=== PATIENT | male | born 1935 | race Caucasian/White ===

== ENCOUNTER 2019-06-25 12:36 | Emergency (ER) | payer OTHER ==
--- OUTSIDE RECORDS SUMMARY | 2019-06-25 12:39 | XMS REPORT | Continuity of Care Document ---
:1935 Author Organization [employer] Care Team Providers Name Role Phone [employer] Unavailable Unavailable Problems Problem Status Onset Classification Date Comments Source Date Reported CVA (Confirmed) Active Problem 05/30/2019 [facility] Dementia Active Problem 05/30/2019 [facility] Diabetes Active Problem 05/30/2019 [facility] Hyperlipidemia Active Problem 05/30/2019 [facility] Hypertension Active Problem 05/30/2019 [facility] Memory loss Active Problem 05/30/2019 [facility] Simple obesity Active Problem 05/30/2019 [facility] Cerebrovascular Active Problem 06/13/2019 [facility] accident (disorder) [facility] Dementia (disorder) Active Problem 06/13/2019 [facility] Diabetes mellitus Active Problem 06/13/2019 [facility] (disorder) [facility] Hyperlipidemia Active Problem 06/13/2019 [facility] (disorder) [facility] Hypertensive Active Problem 06/13/2019 [facility] disorder, systemic Neuro arterial (disorder) Memory impairment Active Problem 06/13/2019 [facility] (finding) [facility] Simple obesity Active Problem 06/13/2019 [facility] (disorder) [facility] Medications Medication Details Route Status Patient Ordering Order Source Instructions Provider Date Memantine 10 mg=1 Active [facility] hydrochloride 10 MG tab, PO, 019 [facility] Oral Tablet [Namenda] BID, # 180 tab, 2 Refill(s) Memantine 5 mg=1 Active [facility] hydrochloride 5 MG tab, PO, 019 [facility] Oral Tablet [Namenda] BID, # 30 tab, 1 Refill(s) , Pharmacy: [id number] clopidogrel 75 MG 75 mg=1 Active [facility] Tablet [Plavix] tab, PO, 019 [facility] Daily, # 90 tab, 3 Refill(s) , Pharmacy: [id number] Donepezil 5 mg=1 Active [facility] hydrochloride 5 MG tab, PO, 019 [facility] Oral Tablet [Aricept] Bedtime, # 30 tab, 3 Refill(s) , Pharmacy: [id number] clopidogrel 75 MG 75 mg=1 Active [facility] Tablet [Plavix] tab, PO, 019 [facility] Daily, # 30 tab, 3 Refill(s) , Pharmacy: [id number] carvedilol 12.5 mg, Active [facility] PO, BID, 019 [facility] 0 Refill(s) Hydrochlorothiazide 25 mg, Active [facility] PO, 019 [facility] Daily, 0 Refill(s) Ramipril 10 mg, Active [facility] PO, 019 [facility] Daily, 0 Refill(s) Fenofibrate 160 mg, Active [facility] PO, 019 [facility] Daily, 0 Refill(s) Janumet See Active [facility] Instructi 019 [facility] ons, 50-1000mg daily, 0 Refill(s) Aspirin 81 mg, Active [facility] PO, 019 [facility] Daily, 0 Refill(s) Potassium Chloride 20 mEq, Active [facility] PO, 019 [facility] Daily, 0 Refill(s) Glipizide 10 mg, Active [facility] PO, 019 [facility] Daily, 0 Refill(s) Amlodipine 5 mg, PO, Active [facility] Daily, 0 019 [facility] Refill(s) Allergies, Adverse Reactions, Alerts No Known Medication Allergies Immunizations No Data Provided for This Section Results No Data Provided for This Section Pathology Reports No Data Provided for This Section Diagnostic Reports No Data Provided for This Section Consultation Notes No Data Provided for This Section Discharge Summaries No Data Provided for This Section History and Physicals No Data Provided for This Section Vital Signs Vital Sign Value Date Comments Source Systolic (mm Hg) 126 06/10/2019 [facility] Diastolic (mm Hg) 70 06/10/2019 [facility] Heart Rate 83 06/10/2019 [facility] Respitory Rate 16 06/10/2019 [facility] Height 182.88 cm 06/10/2019 [facility] Weight 87.727 06/10/2019 [facility] BMI Calculated 26.23 06/10/2019 [facility] Respitory Rate 16 05/27/2019 [facility] Heart Rate 87 05/27/2019 [facility] Height 172.72 cm 05/27/2019 [facility] Weight 89.091 05/27/2019 [facility] BMI Calculated 29.86 05/27/2019 [facility] Systolic (mm Hg) 144 05/27/2019 [facility] Diastolic (mm Hg) 70 05/27/2019 [facility] Height 182.88 cm 04/18/2019 [facility] Weight 92.273 04/18/2019 [facility] BMI Calculated 27.59 04/18/2019 [facility] Respitory Rate 16 04/18/2019 [facility] Systolic (mm Hg) 125 04/18/2019 [facility] Diastolic (mm Hg) 69 04/18/2019 [facility] Heart Rate 80 04/18/2019 [facility] Weight 94.545 03/18/2019 [facility] BMI Calculated 30.78 03/18/2019 [facility] Systolic (mm Hg) 141 03/18/2019 [facility] Diastolic (mm Hg) 64 03/18/2019 [facility] Respitory Rate 16 03/18/2019 [facility] Heart Rate 76 03/18/2019 [facility] Height 175.26 cm 03/18/2019 [facility] Encounters Location Location Encounter Encounter Reason Attending ADM DC Status Source Details Type Number For Provider Date Date Visit Outpatient [id number] Artie 03/18 [facility] [id number] Artie 03/18 03/19 [facility] [place] [facility]patient [id number] Artie 04/18 [facility] Outpatient [id number] Artie 04/18 04/19 [facility] [place] Outpatient [id number] Artie 05/27 [facility] Outpatient [id number] Artie 05/27 05/28 [facility] [place] Outpatient [id number] Artie 06/10 [facility] Outpatient [id number] Artie 06/10 06/11 [facility] [place] Outpatient [id number] Artie 08/27 [facility] Procedures Procedure Code Date Perfomer Comments Source Knee replacement [id number] [facility] Assessment and Plan No Data Provided for This Section Plan of Care No Data Provided for This Section Social History Social History Date Source Social History TypeResponse 06/10/2019 [facility] Employment/School Status: Retired. Work/School description: Lives in [place], [place]. Other: not driving. No Will no POA.1, 2 Smoking Status Never smoker; Exposure to Tobacco Smoke Unable to obtain; Cigarette Smoking Last 365 Days Unable to obtain; Reg Smoking Cessation Counseling No entered on: 06/10/19 1POA-Daughter- Candace Araiza2May release medical information to Daughter- Candace Araiza and Daughter Cecelia Marks Family History No Data Provided for This Section Advance Directives No Data Provided for This Section Functional Status No Data Provided for This Section
--- OUTSIDE RECORDS SUMMARY | 2019-06-25 12:39 | XMS REPORT ---
:1935 [facility] Address [address] [place] [address] Dr. Serna [address] [place] [id number] Care Team Providers Name Role Phone Unavailable Unavailable Unavailable Problems This patient has no known problems. Allergies, Adverse Reactions, Alerts This patient has no known allergies or adverse reactions. Medications This patient has no known medications.
--- OUTSIDE RECORDS SUMMARY | 2019-06-25 12:39 | XMS REPORT | Summary of Care ---
:1935 Author Organization [facility] Address [address] [place] [address]- Encounter HQ Radha(FIN) [id number] Date(s): 06/10/19 - 06/10/19 [facility] [address] [place] [address]- [phone] Discharge Disposition: Home or Self Care Attending Physician: Artie Arroyo MD Referring Physician: Artie Arroyo MD Vital Signs Most recent to oldest [Reference Range]: 1 Height 182.88 cm (06/10/19 3:57 PM) Blood Pressure [90-140/60-90 mmHg] 126/70 mmHg (06/10/19 3:57 PM) Respiratory Rate [14-20 BRMIN] 16 BRMIN (06/10/19 3:57 PM) Peripheral Pulse Rate [60-100 bpm] 83 bpm (06/10/19 3:57 PM) Weight 87.727 kg (06/10/19 3:57 PM) Body Mass Index 26.23 m2 (06/10/19 3:57 PM) Problem List Condition Effective Dates Status Health Status Informant CVA (cerebrovascular Active accident)(Confirmed) Dementia(Confirmed) Active Diabetes(Confirmed) Active Hyperlipidemia(Confirmed) Active Hypertension(Confirmed) Active Memory loss(Confirmed) Active Simple obesity(Confirmed) Active Allergies, Adverse Reactions, Alerts No Known Allergies Medications Namenda 10 mg oral tablet 10 mg=1 tab, PO, BID, # 180 tab, 2 Refill(s) Start Date: 06/10/19 Stop Date: 03/06/20 Status: Ordered Results No data available for this section Immunizations No data available for this section Procedures Procedure Date Related Diagnosis Body Site Status Knee replacement Completed Social History Social History Type Response Employment/School Status: Retired. Work/School description: Lives in [place], [place]. Other: not driving. No Will no POA.1, 2 Smoking Status Never smoker; Exposure to Tobacco Smoke Unable to obtain; Cigarette Smoking Last 365 Days Unable to obtain; Reg Smoking Cessation Counseling No entered on: 06/10/19 1POA-Daughter- Candace Araiza2May release medical information to Daughter-Candace Araiza & Daughter Cecelia Marks Assessment and Plan No data available for this section
--- NOTE | 2019-06-25 13:21 | RAD REPORT ---
EXAM DESCRIPTION: CT - [id number] - 06/25/2019 1:03 pm CLINICAL HISTORY: Fall, head and neck injury, anticoagulation therapy COMPARISON: None. TECHNIQUE: Axial 5 mm thick images of the head were obtained. Axial 2 mm thick images of the cervic al spine were obtained with sagittal and coronal reconstruction images generated and reviewed. All CT scans are performed using dose optimization technique as appropriate and may include automated exposure control or mA/KV adjustment according to patient size. FINDINGS: No intracranial hemorrhage, mass, edema or acute intracranial finding. No suspicion for acute infarct ion. No extra-axial fluid collections. Mastoid air cells and paranasal sinuses are clear. No globe or orbit abnormality seen. Patient has moderate severity atrophy and chronic ischemic change. Ventricle s are in proportion to any volume loss. Arterial tree calcifications are present. Cervical body height and alignment are normal. No disk space narrowing. No cervical fracture. No lyti c, sclerotic or expansile bony destructive process. Patient has very pronounced and thickened opacifi cation along the anterior aspect of the cervical spine fusing C2 -C7 along the anterior margin. There is prominent spurring at the C7-T1 level but no complete bony bridging. Prominent facet joint degene rative changes are present. 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 Mild bilateral foraminal encroachment at C4-5. There is signific ant bilateral foraminal encroachment at C5-6. Posterior longitudinal ligament mineralization at C5 an d C6 causes borderline central spinal stenosis. No paraspinal mass or hematoma. IMPRESSION: Prominent atrophy and chronic ischemic changes are present but no hemorrhage or acute in tracranial finding. Advanced cervical spine degenerative change present as detailed. No fracture or acute finding seen.
--- NOTE | 2019-06-25 13:29 | RAD REPORT ---
EXAM DESCRIPTION: Shoulder Right 2 View - 06/25/2019 1:14 pm CLINICAL HISTORY: Fall, right shoulder pain COMPARISON: None. TECHNIQUE: Internal and external rotation views of the right shoulder were obtained. FINDINGS: There is no fracture or dislocation. AC joint degenerative changes are present with a sma ll inferiorly directed clavicle spur. Degenerative changes seen along the undersurface of the acromio n as well. AC joint capsular hypertrophy is present superiorly. Acromial humeral joint space is elizabeth l distance. No abnormal calcifications. Degenerative changes present along the articular margins of t he humeral head. IMPRESSION: Right shoulder degenerative change present as detailed. No fracture or other acute findi ng.
--- NOTE | 2019-06-25 14:47 | ER ---
Nurse's Notes [facility] Name: Lui Kelly Age: 84 yrs Sex: Male : 1935 Arrival Date: 06/25/2019 Time: 12:47 Bed 14 Private MD: Diagnosis: Superficial injury of head;Contusion of right shoulder Presentation: 06/25 12:40 Presenting complaint: EMS states: patient had a fall in the bathroom, patient doesn't mg2 have a total recall of the incident. complained of pain in bith shoulders, neck and head. denies LOC. BGL- 87 mg/dl. patient is a resident of [facility]. 12:40 Transition of care: patient was received from another setting of care (long-term care [facility]), [facility]. Onset of symptoms was June 25, 2019 at 12:00. Risk Assessment: Do you want to hurt yourself or someone else? Patient reports no desire to harm self or others. Initial Sepsis Screen: Does the patient meet any 2 criteria? No. Patient's initial sepsis screen is negative. Does the patient have a suspected source of infection? No. Patient's initial sepsis screen is negative. Care prior to arrival: c-collar. 12:40 Method Of Arrival: EMS: [facility] mg2 12:40 Acuity: SOBEIDA 3 mg2 Historical: - Allergies: 13:00 No Known Allergies; mg2 - PMHx: 13:00 Hypertension; Diabetes - NIDDM; High Cholesterol; Dementia; CVA; psoriasis; Depression; mg2 Arthritis; - PSHx: 13:00 Knee surgery; mg2 - Immunization history:: Flu vaccine is up to date. - Social history:: Smoking status: Patient/guardian denies using tobacco, Patient/guardian denies using alcohol, street drugs, IV drugs. - Ebola Screening: : No symptoms or risks identified at this time. Screenin:35 Abuse screen: Denies threats or abuse. Denies injuries from another. Nutritional mg2 screening: No deficits noted. Tuberculosis screening: No symptoms or risk factors identified. Fall Risk Fall in past 12 months (25 points). Assessment: 13:01 Reassessment: patient sent to ct scan. mg2 13:36 General: Appears in no apparent distress. comfortable, Behavior is calm, cooperative. mg2 Pain: Complains of pain in neck, head and both shoulders Pain does not radiate. Pain currently is 7 out of 10 on a pain scale. Quality of pain is described as aching, Pain began suddenly, 2 hours ago. Neuro: Level of Consciousness is awake, alert, obeys commands, Oriented to person, place, situation. Cardiovascular: Capillary refill < 3 seconds Patient's skin is warm and dry. Respiratory: Airway is patent Respiratory effort is even, unlabored, Respiratory pattern is regular, symmetrical. GI: No signs and/or symptoms were reported involving the gastrointestinal system. : No signs and/or symptoms were reported regarding the genitourinary system. EENT: Derm: Skin abrasion in the right knee. Musculoskeletal: Circulation, motion, and sensation intact. Capillary refill < 3 seconds. 15:03 Reassessment: c collar removed as ordered by the provider., patient discharged mg2 accompanied by the family to the senior living. Vital Signs: 12:57 BP 162 / 94; Pulse 84; Resp 18; Temp 98.7; Pulse Ox 99% on R/A; Weight 90.72 kg; Height mg2 6 ft. 0 in. (182.88 cm); Pain 8/10; 13:56 BP 164 / 77; Pulse 85; Resp 18; Pulse Ox 99% on R/A; mg2 15:04 BP 160 / 70; Pulse 85; Resp 18; Temp 98; Pulse Ox 100% on R/A; mg2 12:57 Body Mass Index 27.12 (90.72 kg, 182.88 cm) mg2 Binh Coma Score: 12:49 Eye Response: spontaneous(4). Verbal Response: oriented(5). Motor Response: obeys pm1 commands(6). Total: 15. ED Course: 12:47 Patient arrived in ED. em1 12:47 Lex Bullock, SLICK is Primary Nurse. mg2 12:47 Brian Frey NP is PHCP. pm1 12:47 Reynold Rico MD is Attending Physician. pm1 12:57 Triage completed. mg2 13:00 Arm band placed on. mg2 13:11 No provider procedures requiring assistance completed. Patient did not have IV access mg2 during this emergency room visit. 13:32 Shoulder Right (2 View) XRAY In Process Unspecified. EDMS 13:43 Patient has correct armband on for positive identification. mg2 Administered Medications: 14:54 Drug: traMADol 50 mg Route: PO; mg2 14:54 Follow up: Response: No adverse reaction; Medication administered at discharge. mg2 Point of Care Testing: Blood Glucose: 13:56 Blood Glucose: 99 mg/dL; mg2 Ranges: Outcome: 14:47 Discharge ordered by . pm1 15:05 Discharged to senior living. discharge instructions given to the patient and to the mg2 family. 15:05 Condition: stable 15:05 Discharge instructions given to patient, family, Instructed on discharge instructions, follow up and referral plans. medication usage, Demonstrated understanding of instructions, follow-up care, medications, Prescriptions given X 1. 15:05 Patient left the ED. mg2 Signatures: Dispatcher [employer] EDMS Dwaine Hogue em1 Brian Frey NP ROOTER OPERATOR pm1 Lex Bullock RN RN mg2 Corrections: (The following items were deleted from the chart) 13:01 12:40 Care prior to arrival: None. mg2 mg2
--- NOTE | 2019-06-25 14:47 | EDPHYS ---
Physician Documentation [facility] Name: Lui Kelly Age: 84 yrs Sex: Male : 1935 Arrival Date: 06/25/2019 Time: 12:47 Bed 14 Private MD: ED Physician Reynold Rico HPI: 06/25 12:49 This 84 yrs old Male presents to ER via EMS with complaints of Head injury pm1 and fall. 12:49 The patient or guardian reports injury. The complaints affect the forehead. Context of pm1 injury: The problem was sustained at a [place] [facility] or assisted living facility, resulted from a fall, while walking. Onset: The symptoms/episode began/occurred just prior to arrival. Associated signs and symptoms: Pertinent positives: right shoulder pain and neck pain, Pertinent negatives: dazed, headache, injury, nausea, shortness of breath, vomiting. history of multiple falls in the [place] [facility], at least once per week. Patient was walking in the [place] [facility] to the bathroom without his walker. Patient found himself on the floor and presented to the ER with contusion to right side of forehead and right shoulder pain. Historical: - Allergies: 13:00 No Known Allergies; mg2 - PMHx: 13:00 Hypertension; Diabetes - NIDDM; High Cholesterol; Dementia; CVA; psoriasis; Depression; mg2 Arthritis; - PSHx: 13:00 Knee surgery; mg2 - Immunization history:: Flu vaccine is up to date. - Social history:: Smoking status: Patient/guardian denies using tobacco, Patient/guardian denies using alcohol, street drugs, IV drugs. - Ebola Screening: : No symptoms or risks identified at this time. ROS: 12:49 Constitutional: Negative for fever, chills, and weight loss, Eyes: Negative for injury, pm1 pain, redness, and discharge, ENT: Negative for injury, pain, and discharge, Cardiovascular: Negative for chest pain, palpitations, and edema, Respiratory: Negative for shortness of breath, cough, wheezing, and pleuritic chest pain, Abdomen/GI: Negative for abdominal pain, nausea, vomiting, diarrhea, and constipation, Back: Negative for injury and pain, MS/Extremity: Negative for injury and deformity, Skin: Negative for injury, rash, and discoloration. 12:49 Neck: Positive for pain at rest, Negative for bony tenderness. 12:49 Neuro: Positive for headache, Negative for numbness, tingling. Exam: 12:49 Constitutional: This is a well developed, well nourished patient who is awake, alert, pm1 and in no acute distress. 12:49 Eyes: Pupils equal round and reactive to light, extra-ocular motions intact. Lids and lashes normal. Conjunctiva and sclera are non-icteric and not injected. Cornea within normal limits. Periorbital areas with no swelling, redness, or edema. ENT: Nares patent. No nasal discharge, no septal abnormalities noted. Tympanic membranes are normal and external auditory canals are clear. Oropharynx with no redness, swelling, or masses, exudates, or evidence of obstruction, uvula midline. Mucous membranes moist. Neck: Trachea midline, no thyromegaly or masses palpated, and no cervical lymphadenopathy. Supple, full range of motion without nuchal rigidity, or vertebral point tenderness. No Meningismus. Chest/axilla: Normal chest wall appearance and motion. Nontender with no deformity. No lesions are appreciated. Cardiovascular: Regular rate and rhythm with a normal S1 and S2. No gallops, murmurs, or rubs. Normal PMI, no JVD. No pulse deficits. Respiratory: Lungs have equal breath sounds bilaterally, clear to auscultation and percussion. No rales, rhonchi or wheezes noted. No increased work of breathing, no retractions or nasal flaring. Abdomen/GI: Soft, non-tender, with normal bowel sounds. No distension or tympany. No guarding or rebound. No evidence of tenderness throughout. Back: No spinal tenderness. No costovertebral tenderness. Full range of motion. Skin: Warm, dry with normal turgor. Normal color with no rashes, no lesions, and no evidence of cellulitis. MS/ Extremity: Pulses equal, no cyanosis. Neurovascular intact. Full, normal range of motion. 12:49 Head/face: Noted is no obvious of injury or deformity except contusion, that is superficial, of the forehead. 12:49 Neuro: Orientation: to person, place, situation, Motor: moves all fours. Vital Signs: 12:57 BP 162 / 94; Pulse 84; Resp 18; Temp 98.7; Pulse Ox 99% on R/A; Weight 90.72 kg; Height mg2 6 ft. 0 in. (182.88 cm); Pain 8/10; 13:56 BP 164 / 77; Pulse 85; Resp 18; Pulse Ox 99% on R/A; mg2 15:04 BP 160 / 70; Pulse 85; Resp 18; Temp 98; Pulse Ox 100% on R/A; mg2 12:57 Body Mass Index 27.12 (90.72 kg, 182.88 cm) mg2 Binh Coma Score: 12:49 Eye Response: spontaneous(4). Verbal Response: oriented(5). Motor Response: obeys pm1 commands(6). Total: 15. MDM: 12:47 Patient medically screened. pm1 14:44 Data reviewed: vital signs. Data interpreted: Pulse oximetry: on room air is 99 %. pm1 Interpretation: normal. Counseling: I had a detailed discussion with the patient and/or guardian regarding: the historical points, exam findings, and any diagnostic results supporting the discharge/admit diagnosis, radiology results, the need for outpatient follow up, to return to the emergency department if symptoms worsen or persist or if there are any questions or concerns that arise at home. 06/25 12:47 Order name: Shoulder Right (2 View) XRAY pm1 06/25 12:47 Order name: CT Head C Spine pm1 Administered Medications: 14:54 Drug: traMADol 50 mg Route: PO; mg2 14:54 Follow up: Response: No adverse reaction; Medication administered at discharge. mg2 Point of Care Testing: Blood Glucose: 13:56 Blood Glucose: 99 mg/dL; mg2 Ranges: Critical Glucose Levels:Adult <50 mg/dl or >400 mg/dl <40 mg/dl or >180 mg/dl Disposition: 15:48 Co-signature as Attending Physician, Reynold Rico MD. rn Disposition: 06/25/19 14:47 Discharged to Home. Impression: Superficial injury of head, Contusion of right shoulder. - Condition is Stable. - Discharge Instructions: Head Injury, Adult, Shoulder Pain. - Prescriptions for Tramadol 50 mg Oral Tablet - take 1 tablet by ORAL route every 8 hours as needed; 12 tablet. - Medication Reconciliation Form, Thank You Letter, Antibiotic Education, Prescription Opioid Use form. - Follow up: Emergency Department; When: As needed; Reason: Worsening of condition. Follow up: Private Physician; When: 2 - 3 days; Reason: Recheck today's complaints, Continuance of care, Re-evaluation by your physician. - Problem is new. - Symptoms have improved. Signatures: Dispatcher [employer] EDMS Reynold Rico MD MD rn rBian Frey, GEOLOGICAL TECHNICAL OFFICER GEOLOGICAL TECHNICAL OFFICER pm1 Lex Bullock, RN RN mg2 Corrections: (The following items were deleted from the chart) 15:05 14:47 06/25/2019 14:47 Discharged to Home. Impression: Superficial injury of head; mg2 Contusion of right shoulder. Condition is Stable. Forms are Medication Reconciliation Form, Thank You Letter, Antibiotic Education, Prescription Opioid Use. Follow up: Emergency Department; When: As needed; Reason: Worsening of condition. Follow up: Private Physician; When: 2 - 3 days; Reason: Recheck today's complaints, Continuance of care, Re-evaluation by your physician. Problem is new. Symptoms have improved. pm1
[2019-06-25] MEDS ORDERED: TRAMADOL HCL 50 MG TAB ONE (14:53)
== END 2019-06-25 15:05 | disposition home or self-care (01) ==
LOC: ER 12:36
DX: S40.011A Contusion of right shoulder, initial encounter (principal); S00.90XA Unspecified superficial injury of unspecified part of head, initial encounter; W19.XXXA Unspecified fall, initial encounter; Y93.01 Activity, walking, marching and hiking; Y92.129 Unspecified place in nursing home as the place of occurrence of the external cause; I10 Essential (primary) hypertension
CPT/HCPCS: 70450; 72125; 82962; 99284

== ENCOUNTER 2019-09-05 18:47 | Emergency (ER) | payer OTHER ==
--- OUTSIDE RECORDS SUMMARY | 2019-09-05 18:50 | XMS REPORT ---
:1935 [facility] [address] [place] [address] Dr. Serna [address] [place] [id number] Care Team Providers Name Role Phone Unavailable Unavailable Unavailable Problems This patient has no known problems. Allergies, Adverse Reactions, Alerts This patient has no known allergies or adverse reactions. Medications This patient has no known medications.
--- NOTE | 2019-09-05 20:26 | RAD REPORT ---
EXAM DESCRIPTION: RAD - Abdomen 1 View (KUB) - 09/05/2019 8:17 pm CLINICAL HISTORY: Abdomen pain. FINDINGS: The bowel gas pattern is unremarkable. A moderate amount of stool is present throughout the colon No significant calcifications displayed
--- NOTE | 2019-09-05 20:34 | ER ---
Nurse's Notes [facility] Name: uLi Kelly Age: 84 yrs Sex: Male : 1935 Arrival Date: 09/05/2019 Time: 18:49 Bed 30 Private MD: Diagnosis: Constipation, unspecified Presentation: 09/05 18:54 Presenting complaint: Patient states: i havent pooped in 4 days, i live at [facility], i tw2 have been prescribed 4 different stool softeners, and i havent gone yet. Transition of care: patient was not received from another setting of care. Onset of symptoms was September 05, 2019. Risk Assessment: Do you want to hurt yourself or someone else? Patient reports no desire to harm self or others. Initial Sepsis Screen: Does the patient meet any 2 criteria? No. Patient's initial sepsis screen is negative. Does the patient have a suspected source of infection? No. Patient's initial sepsis screen is negative. Care prior to arrival: None. 18:54 Method Of Arrival: Wheelchair tw2 18:54 Acuity: SOBEIDA 3 tw2 Triage Assessment: 18:55 General: Appears in no apparent distress. Behavior is calm, cooperative, appropriate tw2 for age. Pain: Complains of pain in abdomen. GI: Reports constipation. Historical: - Allergies: 19:00 No Known Allergies; tw2 - Home Meds: 19:00 amlodipine 5 mg tab 1 tab once daily [Active]; carvedilol 12.5 mg oral tab 1 tab 2 tw2 times per day [Active]; cefpodoxime 200 mg oral tab 1 tab every 12 hours [Active]; clopidogrel 75 mg oral tab 1 tab once daily [Active]; fenofibrate 160 mg oral tab 1 tab once daily [Active]; glipizide 10 mg Oral tab 1 tab once daily [Active]; Janumet 50-1,000 mg oral tab 1 tab 2 times per day [Active]; memantine 5 mg oral tab 2 tabs 2 times per day [Active]; Natural Fiber Laxative (sugar) 3.4 gram/12 gram oral powd [Active]; potassium chloride 20 mEq Oral TbER 1 tab 2 times per day [Active]; ramipril 10 mg Oral cap 1 cap once daily [Active]; senna 8.6 mg oral tab 2 tabs once daily [Active]; tamsulosin 0.4 mg oral cp24 1 cap once daily [Active]; Miralax 17 gram Oral pwpk 1 packet once daily [Active]; nystatin 100,000 unit/mL Oral susp 4 mL 4 times per day [Active]; tramadol 50 mg Oral tab 1 tab every 6 hours [Active]; triamcinolone acetonide 0.025 % Topical lotn 2 times per day [Active]; - PMHx: 19:00 Arthritis; CVA; Dementia; Depression; Diabetes - NIDDM; High Cholesterol; Hypertension; tw2 psoriasis; - PSHx: 19:00 Knee surgery; tw2 - Immunization history:: Adult Immunizations. - Social history:: Smoking status: . - Ebola Screening: : Patient denies travel to an Ebola-affected area in the 21 days before illness onset. Screenin:58 Abuse screen: Denies threats or abuse. Denies injuries from another. Nutritional rv screening: No deficits noted. Tuberculosis screening: No symptoms or risk factors identified. Fall Risk No fall in past 12 months (0 pts). Secondary diagnosis (15 points) Alzheimer's, Ambulatory Aid- None/Bed Rest/Nurse Assist (0 pts). Gait- Normal/Bed Rest/Wheelchair (0 pts) Mental Status- Oriented to own ability (0 pts). Total Gonzalez Fall Scale indicates No Risk (0-24 pts). Assessment: 19:57 General: Appears in no apparent distress. comfortable, Behavior is calm, cooperative. rv Pain: Complains of pain in abdomen. Neuro: Level of Consciousness is awake, alert, obeys commands, Oriented to person, place, time, situation. Cardiovascular: Patient's skin is warm and dry. Respiratory: Airway is patent. GI: Bowel sounds present X 4 quads. Abd is soft and non tender X 4 quads. GI: Reports lower abdominal pain. : No signs and/or symptoms were reported regarding the genitourinary system. EENT: No signs and/or symptoms were reported regarding the EENT system. Derm: Skin is intact. Musculoskeletal: No signs and/or symptoms reported regarding the musculoskeletal system. Vital Signs: 19:00 BP 121 / 66; Pulse 87; Resp 17; Temp 98.6(O); Pulse Ox 96% on R/A; Weight 90.72 kg (R); tw2 Height 5 ft. (152.40 cm); Pain 5/10; 20:57 BP 166 / 81; Pulse 84; Resp 17; Pulse Ox 97% on R/A; rv 19:00 Body Mass Index 39.06 (90.72 kg, 152.40 cm) tw2 ED Course: 18:49 Patient arrived in ED. as 18:55 Triage completed. tw2 18:56 Arm band placed on. tw2 19:20 Ketan Torrez MD is Attending Physician. tw4 19:27 Walker Denton, RN is Primary Nurse. rv 19:58 Patient has correct armband on for positive identification. Bed in low position. Call rv light in reach. Side rails up X 1. Pulse ox on. NIBP on. 20:13 Abdomen 1 View (KUB) XRAY In Process Unspecified. EDMS 20:56 No provider procedures requiring assistance completed. Patient did not have IV access rv during this emergency room visit. Administered Medications: 20:40 Drug: Lactulose 30 grams Volume: 45 ml; Route: PO; rv 20:56 Follow up: Response: No adverse reaction rv Outcome: 20:33 Discharge ordered by . tw4 20:56 Discharged to home via wheelchair, with family. rv 20:56 Condition: good 20:56 Discharge instructions given to family, Instructed on discharge instructions, follow up and referral plans. medication usage, Demonstrated understanding of instructions, follow-up care, medications, Prescriptions given X 3. 20:57 Patient left the ED. rv Signatures: Dispatcher [employer] EDMS Kamala Hogue Tara RN RN tw2 Ketan Torrez MD MD tw4 Walker Denton, RN RN rv Corrections: (The following items were deleted from the chart) 19:59 19:58 Fall Risk None identified. rv rv
--- NOTE | 2019-09-05 20:35 | EDPHYS ---
Physician Documentation [facility] Name: Lui Kelly Age: 84 yrs Sex: Male : 1935 Arrival Date: 09/05/2019 Time: 18:49 Bed 30 Private MD: ED Physician Ketan Torrez HPI: 09/06 06:35 This 84 yrs old Male presents to ER via Wheelchair with complaints of tw4 Constipation, Abdominal Pain. 06:35 The patient presents to the emergency department with pain in the rectal area, that is tw4 mild. Onset: The symptoms/episode began/occurred 4 day(s) ago. Modifying factors: The symptoms are alleviated by nothing. Associate signs and symptoms: The patient has no apparent associated signs or symptoms. The patient has experienced similar episodes in the past, a few times. Pt has been taking ;laxatives given by the senior care with no relief . Historical: - Allergies: 09/05 19:00 No Known Allergies; tw2 - Home Meds: 19:00 amlodipine 5 mg tab 1 tab once daily [Active]; carvedilol 12.5 mg oral tab 1 tab 2 tw2 times per day [Active]; cefpodoxime 200 mg oral tab 1 tab every 12 hours [Active]; clopidogrel 75 mg oral tab 1 tab once daily [Active]; fenofibrate 160 mg oral tab 1 tab once daily [Active]; glipizide 10 mg Oral tab 1 tab once daily [Active]; Janumet 50-1,000 mg oral tab 1 tab 2 times per day [Active]; memantine 5 mg oral tab 2 tabs 2 times per day [Active]; Natural Fiber Laxative (sugar) 3.4 gram/12 gram oral powd [Active]; potassium chloride 20 mEq Oral TbER 1 tab 2 times per day [Active]; ramipril 10 mg Oral cap 1 cap once daily [Active]; senna 8.6 mg oral tab 2 tabs once daily [Active]; tamsulosin 0.4 mg oral cp24 1 cap once daily [Active]; Miralax 17 gram Oral pwpk 1 packet once daily [Active]; nystatin 100,000 unit/mL Oral susp 4 mL 4 times per day [Active]; tramadol 50 mg Oral tab 1 tab every 6 hours [Active]; triamcinolone acetonide 0.025 % Topical lotn 2 times per day [Active]; - PMHx: 19:00 Arthritis; CVA; Dementia; Depression; Diabetes - NIDDM; High Cholesterol; Hypertension; tw2 psoriasis; - PSHx: 19:00 Knee surgery; tw2 - Immunization history:: Adult Immunizations. - Social history:: Smoking status: . - Ebola Screening: : Patient denies travel to an Ebola-affected area in the 21 days before illness onset. ROS: 09/06 06:35 Constitutional: Negative for fever, chills, and weight loss, Eyes: Negative for injury, tw4 pain, redness, and discharge, Cardiovascular: Negative for chest pain, palpitations, and edema, Respiratory: Negative for shortness of breath, cough, wheezing, and pleuritic chest pain. Abdomen/GI: Positive for rectal pain. 06:35 Abdomen/GI: Positive for constipation. tw4 Exam: 06:35 Constitutional: This is a well developed, well nourished patient who is awake, alert, tw4 and in no acute distress. Head/Face: Normocephalic, atraumatic. Chest/axilla: Normal chest wall appearance and motion. Nontender with no deformity. No lesions are appreciated. Cardiovascular: Regular rate and rhythm with a normal S1 and S2. No gallops, murmurs, or rubs. Normal PMI, no JVD. No pulse deficits. Respiratory: Lungs have equal breath sounds bilaterally, clear to auscultation and percussion. No rales, rhonchi or wheezes noted. No increased work of breathing, no retractions or nasal flaring. 06:35 Back: No spinal tenderness. No costovertebral tenderness. Full range of motion. Skin: Warm, dry with normal turgor. Normal color with no rashes, no lesions, and no evidence of cellulitis. 06:35 Abdomen/GI: Inspection: abdomen appears normal. Vital Signs: 09/05 19:00 BP 121 / 66; Pulse 87; Resp 17; Temp 98.6(O); Pulse Ox 96% on R/A; Weight 90.72 kg (R); tw2 Height 5 ft. (152.40 cm); Pain 5/10; 20:57 BP 166 / 81; Pulse 84; Resp 17; Pulse Ox 97% on R/A; rv 19:00 Body Mass Index 39.06 (90.72 kg, 152.40 cm) tw2 MDM: 19:20 Patient medically screened. tw4 09/06 06:37 Differential diagnosis: hemorrhoids. Data reviewed: vital signs, nurses notes. Data tw4 interpreted: Pulse oximetry: Interpretation: normal. Counseling: I had a detailed discussion with the patient and/or guardian regarding: the historical points, exam findings, and any diagnostic results supporting the discharge/admit diagnosis, radiology results. Special discussion: I discussed with the patient/guardian in detail that at this point there is no indication for admission to the hospital. It is understood, however, that if the symptoms persist or worsen the patient needs to return immediately for re-evaluation. 09/05 19:55 Order name: Abdomen 1 View (KUB) XRAY; Complete Time: 20:28 tw4 Administered Medications: 09/05 20:40 Drug: Lactulose 30 grams Volume: 45 ml; Route: PO; rv 20:56 Follow up: Response: No adverse reaction rv Disposition: 09/05/19 20:33 Discharged to Home. Impression: Constipation, unspecified. - Condition is Stable. - Discharge Instructions: Constipation, Adult, High-Fiber Diet. - Prescriptions for Lactulose 10 gram/15 mL Oral Solution - take 30 milliliter by ORAL route once daily; 300 milliliter. Dulcolax 10 mg Rectal Suppository - insert 1 suppository by RECTAL route every 6 hours As needed; 10 suppository. Miralax 17 gram/dose Oral - take 1 packet by ORAL route once daily dilute powder in 8 ounces of water or juice; 1 packet. - Medication Reconciliation Form, Thank You Letter, Antibiotic Education, Prescription Opioid Use form. - Follow up: Private Physician; When: Upon discharge from the Emergency Department; Reason: Recheck today's complaints, Continuance of care. - Problem is an ongoing problem. - Symptoms are unchanged. Signatures: Dispatcher [employer] EDChristen Landin RN RN tw2 Ketan Torrez MD MD tw4 Walker Dentno RN RN rv Corrections: (The following items were deleted from the chart) 20:57 20:33 09/05/2019 20:33 Discharged to Home. Impression: Constipation, unspecified. rv Condition is Stable. Forms are Medication Reconciliation Form, Thank You Letter, Antibiotic Education, Prescription Opioid Use. Follow up: Private Physician; When: Upon discharge from the Emergency Department; Reason: Recheck today's complaints, Continuance of care. Problem is an ongoing problem. Symptoms are unchanged. tw4
[2019-09-05] MEDS ORDERED: LACTULOSE 20 GM/30 ML UCUP ONE (20:43)
[2019-09-05 21:11] VITALS: BP 121/66; TEMP 98.6; O2SAT 96
== END 2019-09-05 20:57 | disposition home or self-care (01) ==
LOC: ER 18:47
DX: K59.00 Constipation, unspecified (principal); F03.90 Unspecified dementia, unspecified severity, without behavioral disturbance, psychotic disturbance, mood disturbance, and anxiety; E11.9 Type 2 diabetes mellitus without complications; E78.00 Pure hypercholesterolemia, unspecified; I10 Essential (primary) hypertension; F32.9 Major depressive disorder, single episode, unspecified; Z86.73 Personal history of transient ischemic attack (TIA), and cerebral infarction without residual deficits
CPT/HCPCS: 74018; 99284

== ENCOUNTER 2023-03-20 11:44 | Emergency (ER) | payer OTHER ==
--- OUTSIDE RECORDS SUMMARY | 2023-03-20 11:47 | XMS REPORT | Continuity of Care Document ---
:1935 Author Organization [facility] t Address [address] [place] [address] [place] [id number] Care Team Providers Name Role Phone DinaArtie Epifanio Attending Clinician Blair VIDAL, Jaclyn Velazquez Attending Clinician Nicole Null Attending Clinician Yusuf Garcia Attending Clinician Eli Dunne DO Attending Clinician Payers Payer Name Policy Type Policy Number Effective Date Expiration Date S ource Problems Condition Condition Condition Status Onset Resolution Last Treating Co mments Source Name Details Category Date Date Treatment Clinician Date Total knee Total knee Disease Active U nivers replacemen replacemen 5-14 it y of t status t status 00:00: [address] Branch Cerebrovas Cerebrova Problem Active 2022-11-05 Memoria cular scular 01:25:10 l accident accident Brennen n (disorder) (disorder) Active Problem 11/05/2022 Medical [facility] Dementia Dementia Problem Active 2022-11-05 Memoria (disorder) (disorder) 01:25:10 l Active [place] Problem 11/05/2022 Medical [facility] her [facility] Diabetes Diabetes Problem Active 2022-11-05 Memoria mellitus mellitus 01:25:10 l (disorder) (disorder) He rmgordy Active Problem 11/05/2022 Medical [facility] 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 01:25:10 l (context-d (context-d He rmann ependent ependent category) category) Active Problem 11/05/2022 [facility] Hyperlipid Hyperlipi Problem Active 2022-11-05 Memoria emia demia 01:25:10 l (disorder) (disorder) He rmann Active Problem 11/05/2022 Medical Group,[facility] Hypertensi Hypertens Problem Active 2022-11-05 Memoria ve jaye 01:25:10 l disorder, disorder, Herm gordy systemic systemic arterial arterial (disorder) (disorder) Active Problem 11/05/2022 Medical Group,[facility] Memory Memory Problem Active 2022-11-05 Artis andre impairment impairment 01:25:10 l (finding) (finding) Herm gordy Active Problem 11/05/2022 Medical Group,[facility] Simple Simple Problem Active 2022-11-05 Artis andre obesity obesity 01:25:10 l (disorder) (disorder) He rmann Active Problem 11/05/2022 Medical Group,[facility] Allergies, Adverse Reactions, Alerts Allergy Allergy Status Severity Reaction(s) Onset Inactive Treating Comm ents Source Name Type Date Date Clinician NO KNOWN Drug Active Univers ALLERGIE Class ity of [facility] Social History Social Habit Start Date Stop Date Quantity Comments Source Exposure to Not sure [place] of SARS-CoV-2 [place] [facility] (event) Branch Social History 2019-06-10 2019-06-10 Julissa carrillo 21:47:34 21:47:34 Alcohol intake 2019-05-28 2019-05-28 Current University of 00:00:00 00:00:00 non-drinker of [facility] alcohol Branch (finding) Tobacco use and 2019-05-28 2019-05-28 Never used Universit y of exposure 00:00:00 00:00:00 [facility] Sex Ass[birth year] At [birth year] Universit y of 00:00:00 00:00:00 [facility] Smoking Status Start Date Stop Date Source Tobacco smoking status [facility] Medications Ordered Filled Start Stop Current Ordering Indication Dosage Frequency Signature Comments Components Source Medication Medication Date Date Medication? Clinician (SIG) Name Name memantine Yes = 1 tab, Artis andre 10 mg oral 7-12 PO, BID, # l tablet 19:24: 60 ea, 10 Brennen n 00 Refill(s), Pharmacy: [facility], 172.72, cm, 07/01/20 16:05:00 CDT, Height, 88.636, kg, 07/01/20 16:05:00 CDT, Weight HYDROcodone 2020-0 1- No 1{tbl} 1 tablet, Univers -acetaminop 7-15 07-15 Oral, ity of hen (NORCO 04:00: 03:31 ONCE, 1 Mahendra as 5) 5-325 mg 00 :00 dose, Wed Med ical tablet 1 05/04/21 at [facility] h tablet 2300, CHAPIS acetaminoph Yes 4647 1{tbl} Take 1 Un mayur en-codeine 7-15 tablet by ity of (TYLENOL-CO 00:00: mouth [place] #3) 00 every 4 Medical 300-30 mg (four) Branch tablet hours as needed for Pain (scale 7-10). Indication s: acute pain clopidogrel Yes 75 mg = 1 M emoria 75 MG Oral 3-06 tab, PO, l Tablet 22:12: Daily, # Vinnie [Plavix] 00 90 tab, 3 Refill(s), [facility] Memantine Yes 10 mg = 1 Mem oria hydrochlori 3-06 tab, PO, l de 10 MG 22:12: BID, # 180 Her alvarado Oral Tablet 00 tab, 2 [Namenda] Refill(s), Pharmacy: [facility] Plavix 75 Yes 75 mg = 1 Mem oria mg oral 3-06 tab, PO, l tablet 22:12: Daily, # Vinnie 00 90 tab, 3 Refill(s), Pharmacy: [facility] cefpodoxime 2018-10 Yes 200 mg = 1 Memoria 200 mg oral 1-01 tab, PO, l tablet 19:32: Q12H, X 10 Adrianna nn 00 day, # 20 tab, 0 Refill(s), Pharmacy: [facility] Tamsulosin 2018-10 Yes 0.4 mg = 1 M emoria hydrochlori 0-16 cap, PO, l de 0.4 MG 20:30: Daily, Brennen n Oral 00 Take at Capsule night [Flomax] time, prior to going to bed., # 30 cap, 0 Refill(s), Pharmacy: [facility] Sulfamethox 2019- Yes 1 tab, PO, Memoria azole 400 0-16 BID, X 7 l MG / 20:30: day, # 14 Vinnie Trimethopri 00 tab, 0 m 80 MG Refill(s) Oral Tablet [Bactrim] Flomax 0.4 2018- Yes 0.4 mg = 1 M emoria mg oral 0-16 cap, PO, l capsule 20:30: Daily, Warren 00 Take at night time, prior to going to bed., # 30 cap, 0 Refill(s), Pharmacy: [facility] Memantine Yes 10 mg = 1 Mem oria hydrochlori 8-20 tab, PO, l de 10 MG 21:48: BID, # 180 Her alvarado Oral Tablet 00 tab, 2 [Namenda] Refill(s) HYDROcodone 2018- 2019- No 1{tbl} 1 tablet, Univers -acetaminop 8-07 08-07 Oral, ity of hen (NORCO 13:15: 12:46 ONCE, 1 Mahendra as 5) 5-325 mg 00 :00 dose, Wed Med ical tablet 1 05/28/19 at Branch tablet 0815, CHAPIS Memantine 2018-0 Yes 5 mg = 1 Artis andre hydrochlori 8-06 tab, PO, l de 5 MG 21:31: BID, # 30 Adrianna nn Oral Tablet 00 tab, 1 [Namenda] Refill(s), Pharmacy: [facility] #[id number] clopidogrel 2019-0 Yes 75 mg = 1 M emoria 75 MG Oral 7-02 tab, PO, l Tablet 19:01: Daily, # Vinnie [Plavix] 49 90 tab, 3 Refill(s), Pharmacy: [facility] #[id number] Donepezil 2019-0 Yes 5 mg = 1 Artis andre hydrochlori 6-28 tab, PO, l de 5 MG 20:49: Bedtime, # Herm gordy Oral Tablet 00 30 tab, 3 [Aricept] Refill(s), Pharmacy: [facility] #[id number] clopidogrel 2019-0 Yes 75 mg = 1 M emoria 75 MG Oral 6-28 tab, PO, l Tablet 20:49: Daily, # Vinnie [Plavix] 00 30 tab, 3 Refill(s), Pharmacy: [facility] #[id number] carvedilol 2019-0 Yes 12.5 mg, Mem oria 5-28 PO, BID, 0 l 19:29: Refill(s) Hydrochloro 2019-0 Yes 25 mg, PO, Memoria thiazide 5-28 Daily, 0 l 19:29: Refill(s) Ramipril 0 Yes 10 mg, PO, Mem oria 5-28 Daily, 0 l 19:29: Refill(s) ramipril 2018-0 Yes 10 mg, PO, Mem oria 5-28 Daily, 0 l 19:29: Refill(s) hydrochloro 2018-0 Yes 25 mg, PO, Memoria thiazide 5-28 Daily, 0 l 19:29: Refill(s) carvedilol 2018-0 Yes 12.5 mg, Mem oria 5-28 PO, BID, 0 l 19:29: Refill(s) Fenofibrate 2018-0 Yes 160 mg, Mem oria 5-28 PO, Daily, l 19:22: 0 Refill(s) Janumet 2018-0 Yes See Memoria 5-28 Instructio l 19:22: ns, 50-1000mg daily, 0 Refill(s) Aspirin 0 Yes 81 mg, PO, Artis andre 5-28 Daily, 0 l 19:22: Refill(s) Potassium 2018-0 Yes 20 mEq, Memor ia Chloride 5-28 PO, Daily, l 19:22: 0 Refill(s) Glipizide 2018-0 Yes 10 mg, PO, Me moria 5-28 Daily, 0 l 19:22: Refill(s) Amlodipine 2018-0 Yes 5 mg, PO, Me moria 5-28 Daily, 0 l 19:22: Refill(s) glipiZIDE 2018-0 Yes 10 mg, PO, Me moria 5-28 Daily, 0 l 19:22: Refill(s) Janumet Yes See Memoria 03-18 Instructio l 19:22: ns, 00 50-1000mg daily, 0 Refill(s) fenofibrate Yes 160 mg, Mem oria - PO, Daily, l 19:22: 0 Refill(s) potassium Yes 20 mEq, Memor ia chloride - PO, Daily, l 19:22: 0 Refill(s) amLODIPine Yes 5 mg, PO, Me moria - Daily, 0 l 19:22: Refill(s) aspirin 81 Yes 81mg Take 81 mg U nivers mg chewable 5-29 by mouth ity of tablet 20:09: daily. [address] aspirin 81 Yes 81mg Take 81 mg U nivers mg chewable 5-29 by mouth ity of tablet 20:09: daily. [address] acetaminoph Yes 1{tbl} Take 1 Un mayur en-codeine 5-16 tablet by ity of (TYLENOL-CO 00:00: mouth [place] #3) 00 every 4 Medical 300-30 mg (four) Branch tablet hours as needed for Pain (scale 4-6) or Pain (scale 7-10). acetaminoph Yes 1{tbl} Take 1 Un mayur en-codeine 5-16 tablet by ity of (TYLENOL-CO 00:00: mouth [place] #3) 00 every 4 Medical 300-30 mg (four) Branch tablet hours as needed for Pain (scale 4-6) or Pain (scale 7-10). amLODIPine Yes 5mg Take 5 mg Un mayur 5 mg tablet 4-27 by mouth ity of 00:00: daily. [address] amLODIPine Yes 5mg Take 5 mg Un mayur 5 mg tablet 4-27 by mouth ity of 00:00: daily. [address] carvedilol Yes 12.5mg Take 12.5 Univers 12.5 mg 4-21 mg by ity of tablet 00:00: mouth [address] [place] [address] (two) Medical times Branch daily. carvedilol Yes 12.5mg Take 12.5 Univers 12.5 mg 4-21 mg by ity of tablet 00:00: mouth 2 (two) Medical times Branch daily. TRIGLIDE Yes 1{tbl} Take 1 Unive rs 160 mg 8-03 tablet by ity of tablet 00:00: mouth daily. Medical Branch TRIGLIDE Yes 1{tbl} Take 1 Unive rs 160 mg 8-03 tablet by ity of tablet 00:00: mouth daily. Medical Branch ramipril 10 Yes TAKE 1 Univ ers mg capsule 8-01 CAPSULE BY ity of 00:00: MOUTH 2 TIMES A Medical DAY Branch glipiZIDE Yes 10mg Take 10 mg Un mayur 10 mg 8-01 by mouth ity of tablet 00:00: daily. Medical Branch JANUMET Yes 1{tbl} Take 1 Univer s 50-1,000 mg 8-01 tablet by ity of per tablet 00:00: mouth every Medical morning. Branch hydroCHLORO Yes 25mg Take 25 mg Univers thiazide 25 8-01 by mouth ity of mg tablet 00:00: daily. Medical Branch ramipril 10 Yes TAKE 1 Univ ers mg capsule 8-01 CAPSULE BY ity of 00:00: MOUTH 2 TIMES A Medical DAY Branch glipiZIDE Yes 10mg Take 10 mg Un mayur 10 mg 8-01 by mouth ity of tablet 00:00: daily. Medical Branch JANUMET Yes 1{tbl} Take 1 Univer s 50-1,000 mg 8-01 tablet by ity of per tablet 00:00: mouth every Medical morning. Branch hydroCHLORO Yes 25mg Take 25 mg Univers thiazide 25 8-01 by mouth ity of mg tablet 00:00: daily. [place] [facility] [place] Vital Signs Vital Name Observation Time Observation Value Comments Source Systolic blood 2021-05-05 05:00:00 182 mm[Hg] Univer sity of pressure [facility] Diastolic blood 2021-05-05 05:00:00 76 mm[Hg] Unive rsity of pressure [facility] Heart rate 2021-05-05 05:00:00 76 /min Universi ty of [facility] Respiratory rate 2021-05-05 05:00:00 20 /min Univ ersity of [place] [facility] Oxygen saturation in 2021-05-05 05:00:00 97 /min University of Arterial blood by [facility] Pulse oximetry Branch Body temperature 2021-05-05 01:49:17 37.22 [facility] [place] [facility] Body height 2021-05-05 01:41:00 182.9 cm Universi ty [facility] [place] [facility] Body weight 2021-05-05 01:41:00 90.719 kg [facility]i ty [facility] [place] [facility] BMI 2021-05-05 01:41:00 27.12 kg/m2 [facility] [place] [facility] Body temperature 2019-05-28 13:39:40 36.67 [facility] [place] [facility] Respiratory rate 2019-05-28 13:39:40 18 /min [facility] [place] [facility] [place] Oxygen saturation in 2019-05-28 13:39:40 96 /min University of Arterial blood by [facility] Pulse oximetry Branch Systolic blood 2019-05-28 13:39:40 147 mm[Hg] Univer sity of pressure [place] [facility] Diastolic blood 2019-05-28 13:39:40 80 mm[Hg] Unive rsity of pressure [place] [facility] Heart rate 2019-05-28 13:39:40 89 /min Universi ty [facility] [place] [facility] Body weight 2019-05-28 11:40:00 90.719 kg [facility]i ty [facility] [place] [facility] BMI 2019-05-28 11:40:00 27.12 kg/m2 [facility] [place] [facility] Systolic (mm Hg) 2022-05-02 18:33:00 Artis rial Vinnie Diastolic (mm Hg) 2022-05-02 18:33:00 Mem orial [place] Heart Rate 2022-05-02 18:33:00 [facility] [place] Respitory Rate 2022-05-02 18:33:00 Memori al [place] Systolic (mm Hg) 2021-11-02 16:56:00 Artis rial [place] Diastolic (mm Hg) 2021-11-02 16:56:00 Mem orial Vinnie Heart Rate 2021-11-02 16:56:00 Memorial Vinnie Respitory Rate 2021-11-02 16:56:00 Memori al [place] Systolic (mm Hg) 2021-04-29 20:32:00 Artis rial Vinnie Diastolic (mm Hg) 2021-04-29 20:32:00 Mem orial Vinnie Heart Rate 2021-04-29 20:32:00 Memorial [place] Respitory Rate 2021-04-29 20:32:00 Memori al Vinnie Systolic (mm Hg) 2020-07-01 21:05:00 Artis rial [place] Diastolic (mm Hg) 2020-07-01 21:05:00 Mem orial [place] Heart Rate 2020-07-01 21:05:00 Memorial Vinnie Respitory Rate 2020-07-01 21:05:00 Memori al Vinnie Height 2020-07-01 21:05:00 172.72 cm Memorial Vinnie Weight 2020-07-01 21:05:00 Memorial Vinnie BMI Calculated 2020-07-01 21:05:00 Memori al [place] Systolic (mm Hg) 2019-12-26 21:50:00 Artis rial [place] Diastolic (mm Hg) 2019-12-26 21:50:00 Mem orial Vinnie Heart Rate 2019-12-26 21:50:00 [facility] [place] Height 2019-12-26 21:50:00 182.88 cm Memorial Vinnie Weight 2019-12-26 21:50:00 [facility] [place] BMI Calculated 2019-12-26 21:50:00 Memori al Vinnie Height 2019-08-27 22:05:00 172.72 cm Memorial [place] Weight 2019-08-27 22:05:00 Memorial Vinnie BMI Calculated 2019-08-27 22:05:00 Memori al Vinnie Systolic (mm Hg) 2019-08-27 22:05:00 Artis rial Vinnie Diastolic (mm Hg) 2019-08-27 22:05:00 Mem orial Vinnie Heart Rate 2019-08-27 22:05:00 Memorial Vinnie Respitory Rate 2019-08-27 22:05:00 Memori al Vinnie Height 2019-08-06 19:23:00 182.88 cm Memorial Vinnie Weight 2019-08-06 19:23:00 Memorial Vinnie BMI Calculated 2019-08-06 19:23:00 Memori al Vinnie Systolic (mm Hg) 2019-06-10 20:57:00 Artis rial Vinnie Diastolic (mm Hg) 2019-06-10 20:57:00 Mem orial [place] Heart Rate 2019-06-10 20:57:00 Memorial Vinnie Respitory Rate 2019-06-10 20:57:00 Memori al [place] Height 2019-06-10 20:57:00 182.88 cm Memorial Vinnie Weight 2019-06-10 20:57:00 Memorial Vinnie BMI Calculated 2019-06-10 20:57:00 Memori al [place] Respitory Rate 2019-05-27 20:59:00 Memori al Vinnie Heart Rate 2019-05-27 20:59:00 Memorial Vinnie Height 2019-05-27 20:59:00 172.72 cm Memorial Vinnie Weight 2019-05-27 20:59:00 [facility] [place] BMI Calculated 2019-05-27 20:59:00 Memori al [place] Systolic (mm Hg) 2019-05-27 20:59:00 Artis rial Vinine Diastolic (mm Hg) 2019-05-27 20:59:00 Mem orial Vinnie Height 2019-04-18 19:55:00 182.88 cm Memorial Vinnie Weight 2019-04-18 19:55:00 Memorial Vinnie BMI Calculated 2019-04-18 19:55:00 Memori al [place] Respitory Rate 2019-04-18 19:55:00 Memori al Vinnie Systolic (mm Hg) 2019-04-18 19:55:00 Artis rial Vinnie Diastolic (mm Hg) 2019-04-18 19:55:00 Mem orial Vinnie Heart Rate 2019-04-18 19:55:00 Memorial Vinnie Weight 2019-03-18 19:10:00 Memorial Vinnie BMI Calculated 2019-03-18 19:10:00 Memori al [place] Systolic (mm Hg) 2019-03-18 19:10:00 Artis rial [place] Diastolic (mm Hg) 2019-03-18 19:10:00 Mem orial Vinnie Respitory Rate 2019-03-18 19:10:00 Memori al Vinnie Heart Rate 2019-03-18 19:10:00 Memorial Vinnie Height 2019-03-18 19:10:00 175.26 cm [facility] [place] Procedures Procedure Date / Time Performing Clinician Source Performed XR LUMBAR SPINE 2 VW 2021-05-05 03:21:17 [facility] HIPS 2 VW RIGHT 2021-05-05 03:21:17 [facility] HEAD WO CONTRAST 2021-05-05 03:20:31 [facility] 2021-05-05 01:39:26 Doctor Unassigned, No Un [facility] [place] DIAGNOSIS AND TREATMENT Name Medical Branch NOTICE OF PRIVACY 2021-05-05 01:39:06 Doctor Unassigned, No Univ ersity of [facility] CT CERVICAL SPINE WO 2019-05-28 13:00:14 Eli Dunne [facility] [place] CONTRAST Medical Branch CT HEAD WO CONTRAST 2019-05-28 13:00:14 [facility]W LEFT 2019-05-28 12:59:45 [facility] PELVIS <3 VW 2019-05-28 12:59:45 [facility] NOTICE OF PRIVACY 2019-05-28 11:34:37 Doctor Unassigned, No Univ [facility] CONSENT/REFUSAL FOR 2019-05-28 11:34:20 Doctor Unassigned, No Un [facility] [place] DIAGNOSIS AND TREATMENT Name [facility] Knee replacement Julissa martinez Encounters Start End Encounter Admission Attending Care Care Encounter Source Date/Time Date/Time Type Type Clinicians Facility Department ID 2021-08-22 Emergency [facility] [id number] Univers 08:17:13 ity of [facility] 2022-11-02 2022-11-02 Ambulatory MHIE MNA [id number] Memoria 19:30:00 19:30:00 Pre-Reg Neurology 13 debi [place] 2022-11-02 2022-11-02 Outpatient MHIE MHIE [id number] Memoria 13:30:00 13:30:00 13 debi [place] 2022-11-02 2022-11-02 Outpatient DUSTY Arroyo [id number] 13:30:00 13:30:00 Artie 13 Epifanio 2022-05-02 2022-05-03 Outpatient nullFlavo MNA [id number] Memoria 18:45:00 04:59:59 r Neurology 12 debi [place] 2022-05-02 2022-05-02 Outpatient DUSTY Arroyo KATHRYNSCHER [id number] 13:45:00 23:59:59 Artie 12 Epifanio 2022-05-02 2022-05-02 Outpatient MHIE MHIE [id number] Memoria 13:45:00 13:45:00 12 debi [place] 2021-11-02 2021-11-03 Outpatient nullFlavo MNA [id number] Memoria 16:00:00 05:59:59 r Neurology 11 debi [place] 2021-11-02 2021-11-02 Outpatient DUSTY rAroyo KATHRYNSCHER [id number] 10:00:00 23:59:59 Artie 11 Epifanio 2021-11-02 2021-11-02 Outpatient MHIE MHIE [id number] Memoria 10:00:00 10:00:00 11 debi [place] 2021-05-04 2021-05-05 Emergency [facility] [id number] Univers 20:34:00 01:06:00 [facility] [id number] [facility] [id number] [facility] [id number] [address] 2021-04-29 2021-04-30 Outpatient nullFlavo MNA [id number] Memoria 20:30:00 04:59:59 r Neurology 10 debi Gamingann 2021-04-29 2021-04-29 Outpatient DUSTY Arroyo KATHRYNSCHER [id number] 15:30:00 23:59:59 Artie 10 Epifanio 2021-04-29 2021-04-29 Outpatient MHIE MHIE [id number] Memoria 15:30:00 15:30:00 10 debi [place] 2020-07-01 2020-07-02 Outpatient nullFlavo MNA [id number] Memoria 20:45:00 04:59:59 r Neurology 09 l Mccormickangelo Gamingann 2020-07-01 2020-07-01 Outpatient DUSTY Arroyo KATHRYNSCHER [id number] 15:45:00 23:59:59 Artie 09 Epifanio 2020-07-01 2020-07-01 Ambulatory nullFlavo MNA [id number] Memoria 20:45:00 20:45:00 Pre-Reg r Neurology 08 debi [place] 2020-07-01 2020-07-01 Outpatient MHIE MHIE [id number] Memoria 15:45:00 15:45:00 09 debi Vinnie 2020-07-01 2020-07-01 Outpatient MHIE MHIE [id number] Memoria 15:45:00 15:45:00 08 debi Vinnie 2020-07-01 2020-07-01 Outpatient Dina MISCHER MHMISCHER [id number] 15:45:00 15:45:00 Artie 08 Epifanio 2019-12-26 2019-12-27 Outpatient nullFlavo MNA [id number] Memoria 21:45:00 05:59:59 r Neurology 07 l Norberto Gamingann 2019-12-26 2019-12-26 Outpatient KENNA ArroyoMISCHER MHMISCHER [id number] 15:45:00 23:59:59 Artie 07 Epifanio 2019-12-26 2019-12-26 Outpatient MHIE MHIE [id number] Memoria 15:45:00 15:45:00 07 debi Vinnie 2019-08-27 2019-08-28 Outpatient nullFlavo MNA [id number] Memoria 21:45:00 05:59:59 r Neurology 04 debi [place] 2019-08-27 2019-08-27 Outpatient KENNA ArroyoMISCHER MHMISCHER [id number] 15:45:00 23:59:59 Artie Lay Epifanio 2019-08-27 2019-08-27 Outpatient MHIE MHIE [id number] Memoria 15:45:00 15:45:00 04 debi Vinnie 2019-08-27 2019-08-27 Outpatient MHIE MHIE [id number] Memoria 15:40:00 15:40:00 06 debi [place] 2019-08-25 2019-08-25 Ambulatory nullFlavo [facility] [id number] Memoria 21:40:00 21:40:00 Pre-Reg r Specialty 06 l [facility] 2019-08-25 2019-08-25 Outpatient LILI Null [facility] [id number] 15:40:00 15:40:00 Nicole L 2019-08-11 2019-08-12 Between nullFlavo MG [id number] Memoria 23:15:19 23:15:19 Visit r Urology 01 l [facility] 2019-08-11 2019-08-12 Outpatient [facility] MG [id number] 18:15:19 18:15:19 01 2019-08-06 2019-08-07 Outpatient nullFlavo [facility] [id number] Memoria 19:15:00 04:59:59 r Specialty 05 [facility] 2019-08-06 2019-08-06 Outpatient Radha [facility] [id number] 14:15:00 23:59:59 [facility] 2019-08-06 2019-08-06 Outpatient MHIE MHIE [id number] Memoria 14:15:00 14:15:00 05 debi [place] 2019-06-10 2019-06-11 Outpatient nullFlavo MNA [id number] Memoria 21:00:00 04:59:59 r Neurology 03 l Norberto [place] 2019-06-10 2019-06-10 Outpatient KENNA ArroyoMISCHER MHMISCHER [id number] 16:00:00 23:59:59 Artie 03 Epifanio 2019-06-10 2019-06-10 Outpatient MHIE MHIE [id number] Memoria 16:00:00 16:00:00 03 debi Vinnie 2019-05-28 2019-05-28 Emergency [facility] [id number] [facility] 06:35:11 08:47:00 Eli [place] [id number] [facility] [id number] [facility] [id number] [facility] [address] [place] 2019-05-27 2019-05-28 Outpatient nullFlavo MNA [id number] Memoria 20:45:00 04:59:59 r Neurology 02 l Norberto [place] 2019-05-27 2019-05-27 Outpatient KENNA ArroyoMISCHER MHMISCHER [id number] 15:45:00 23:59:59 Artie 02 Epifanio 2019-05-27 2019-05-27 Outpatient MHIE MHIE [id number] Memoria 15:45:00 15:45:00 02 debi [place] 2019-04-18 2019-04-19 Outpatient nullFlavo MNA [id number] Memoria 19:45:00 04:59:59 r Neurology 01 debi [place] 2019-04-18 2019-04-18 Outpatient DUSTY Arroyo [id number] 14:45:00 23:59:59 Artie 01 Epifanio 2019-04-18 2019-04-18 Outpatient CATHERINE CATHERINE [id number] Memoria 14:45:00 14:45:00 01 debi [place] 2019-03-18 2019-03-19 Outpatient nullFlavo CLEMENT [id number] Memoria 19:00:00 04:59:59 r Neurology 00 debi [place] 2019-03-18 2019-03-18 Outpatient DUSTY Arroyo [id number] 14:00:00 23:59:59 Artie 00 Epifanio 2019-03-18 2019-03-18 Outpatient ALEX JOHNSON [id number] Memoria 14:00:00 14:00:00 00 debi [place] Results Test Description Test Test Results Result Source Time Comments Comments CT Head W/O 2019-05- No acute intracranial [facility] of Contrast 07 findings. No acute [facility] 13:32:18 cervical fractures, Branc h dislocations, or traumatic malalignment. Diffuse idiopathic skeletal hyperostosis. I, MD Terrence., have reviewed this study and agree with the abovereport.* * * * * * * * ORIGINAL REPORT * * * * * * * *CT HEAD WO CONTRAST, CT CERVICAL SPINE WO CONTRAST HISTORY: fall COMPARISON: None. TECHNIQUE: Noncontrast CT scan of the head and cervical spine with coronaland sagittal reformats was performed. FINDINGS: CT HEAD: The ventricles and cerebral sulci are prominent, consistent with globalvolume loss No hydrocephalus, midline shift or pathological extra-axialfluid collection is present. The basal cisterns are unremarkable. There is no acute intracranial hemorrhage or significant mass effect. Deepwhite matter and periventricular hypoattenuating foci are present, likelyrepresent small vessel ischemic changes. Left anterior limb of the internalcapsule and lentiform nucleus hypoattenuating area, may represent aprominent perivascular space or remote lacunar infarct. A similar butsmaller area is seen in the right anterior limb of the internal capsule.The le-white matter differentiation is preserved. The mastoid air cells and paranasal air sinuses are clear. The calvariumand central skull base are unremarkable. CERVICAL SPINE: Mild straightening of the cervical lordosis is present. The vertebralbodies are normal in height and in normal alignment. No facet fracture orsubluxation is present. The craniocervical junction is intact. Diffuseossification of the anterior longitudinal ligament is present, consistentwith diffuse idiopathic skeletal hyperostosis. The thyroid gland appears to be enlarged and heterogeneous. [facility], Radiant Results Inft User - 05/28/2019 8:34 AM CDT* * * * * * * * ORIGINAL REPORT * * * * * * * *CT HEAD WO CONTRAST, CT CERVICAL SPINE WO CONTRASTHISTORY: fall COMPARISON: None.TECHNIQUE: Noncontrast CT scan of the head and cervical spine with coronaland sagittal reformats was performed.FINDINGS:CT HEAD:The ventricles and cerebral sulci are prominent, consistent with globalvolume loss No hydrocephalus, midline shift or pathological extra-axialfluid collection is present. The basal cisterns are unremarkable.There is no acute intracranial hemorrhage or significant mass effect. Deepwhite matter and periventricular hypoattenuating foci are present, likelyrepresent small vessel ischemic changes. Left anterior limb of the internalcapsule and lentiform nucleus hypoattenuating area, may represent aprominent perivascular space or remote lacunar infarct. A similar butsmaller area is seen in the right anterior limb of the internal capsule.The le-white matter differentiation is preserved.The mastoid air cells and paranasal air sinuses are clear. The calvariumand central skull base are unremarkable.CERVICAL SPINE:Mild straightening of the cervical lordosis is present. The vertebralbodies are normal in height and in normal alignment. No facet fracture orsubluxation is present. The craniocervical junction is intact. Diffuseossification of the anterior longitudinal ligament is present, consistentwith diffuse idiopathic skeletal hyperostosis.The thyroid gland appears to be enlarged and heterogeneous.IMPRESSIO NNo acute intracranial findings.No acute cervical fractures, dislocations, or traumatic malalignment.Diffuse idiopathic skeletal hyperostosis.I, John Moses MD., have reviewed this study and agree with the abovereport. CT Cervical 2019-05- No acute intracranial [facility] [employer] W/O 07 findings. No acute [facility] 13:32:18 cervical fractures, Branc h dislocations, or traumatic malalignment. Diffuse idiopathic skeletal hyperostosis. ITerrence MD., have reviewed this study and agree with the abovereport.* * * * * * * * ORIGINAL REPORT * * * * * * * *CT HEAD WO CONTRAST, CT CERVICAL SPINE WO CONTRAST HISTORY: fall COMPARISON: None. TECHNIQUE: Noncontrast CT scan of the head and cervical spine with coronaland sagittal reformats was performed. FINDINGS: CT HEAD: The ventricles and cerebral sulci are prominent, consistent with globalvolume loss No hydrocephalus, midline shift or pathological extra-axialfluid collection is present. The basal cisterns are unremarkable. There is no acute intracranial hemorrhage or significant mass effect. Deepwhite matter and periventricular hypoattenuating foci are present, likelyrepresent small vessel ischemic changes. Left anterior limb of the internalcapsule and lentiform nucleus hypoattenuating area, may represent aprominent perivascular space or remote lacunar infarct. A similar butsmaller area is seen in the right anterior limb of the internal capsule.The le-white matter differentiation is preserved. The mastoid air cells and paranasal air sinuses are clear. The calvariumand central skull base are unremarkable. CERVICAL SPINE: Mild straightening of the cervical lordosis is present. The vertebralbodies are normal in height and in normal alignment. No facet fracture orsubluxation is present. The craniocervical junction is intact. Diffuseossification of the anterior longitudinal ligament is present, consistentwith diffuse idiopathic skeletal hyperostosis. The thyroid gland appears to be enlarged and heterogeneous. [facility], Radiant Results Inft User - 05/28/2019 8:34 AM CDT* * * * * * * * ORIGINAL REPORT * * * * * * * *CT HEAD WO CONTRAST, CT CERVICAL SPINE WO CONTRASTHISTORY: fall COMPARISON: None.TECHNIQUE: Noncontrast CT scan of the head and cervical spine with coronaland sagittal reformats was performed.FINDINGS:CT HEAD:The ventricles and cerebral sulci are prominent, consistent with globalvolume loss No hydrocephalus, midline shift or pathological extra-axialfluid collection is present. The basal cisterns are unremarkable.There is no acute intracranial hemorrhage or significant mass effect. Deepwhite matter and periventricular hypoattenuating foci are present, likelyrepresent small vessel ischemic changes. Left anterior limb of the internalcapsule and lentiform nucleus hypoattenuating area, may represent aprominent perivascular space or remote lacunar infarct. A similar butsmaller area is seen in the right anterior limb of the internal capsule.The le-white matter differentiation is preserved.The mastoid air cells and paranasal air sinuses are clear. The calvariumand central skull base are unremarkable.CERVICAL SPINE:Mild straightening of the cervical lordosis is present. The vertebralbodies are normal in height and in normal alignment. No facet fracture orsubluxation is present. The craniocervical junction is intact. Diffuseossification of the anterior longitudinal ligament is present, consistentwith diffuse idiopathic skeletal hyperostosis.The thyroid gland appears to be enlarged and heterogeneous.IMPRESSIO NNo acute intracranial findings.No acute cervical fractures, dislocations, or traumatic malalignment.Diffuse idiopathic skeletal hyperostosis.I, John Moses MD., have reviewed this study and agree with the abovereport. XR KNEE 3 VW 2019-05- 1. No acute [facility] 07 abnormality.2. [facility] [place] [facility] 13:23:21 suprapatellar joint Branc h effusion. * * * * * * * * ORIGINAL REPORT * * * * * * * *EXAM: Left knee 3 views HISTORY: Left knee pain TECHNIQUE:AP, oblique and crosstable lateral views of the left knee areobtained. COMPARISON: 10/03/2018 FINDINGS:No acute abnormality of the knee joint is seen. Changes of totalknee arthroplasty are seen. The prosthesis is in anatomic alignment. A verysmall suprapatellar joint effusion is suspected. [facility], Radiant Results Inft User - 05/28/2019 8:25 AM CDT* * * * * * * * ORIGINAL REPORT * * * * * * * *EXAM: Left knee 3 viewsHISTORY: Left knee painTECHNIQUE:AP, oblique and crosstable lateral views of the left knee areobtained.COMPARISON: 10/03/2018FINDINGS:No acute abnormality of the knee joint is seen. Changes of totalknee arthroplasty are seen. The prosthesis is in anatomic alignment. A verysmall suprapatellar joint effusion is suspected.IMPRESSION1. No acute abnormality.2. Small suprapatellar joint effusion. XR PELVIS <3 VW 2019-05- No fracture * * * * * * [facility] * * ORIGINAL REPORT * * T [facility] 13:22:12 * * * * * *EXAM: Pelvis B ranch AP view HISTORY: Right-sided hip pain TECHNIQUE:An AP view of the pelvis is obtained. FINDINGS:No acute fracture or dislocation is identified. Degenerativechanges are seen in both hip joints. Enthesophyte formation is seen at theinsertion site of the adductor muscles. Changes of spondylosis and facetdegenerative disease are seen in the lower lumbar spine. [facility], Radiant Results Inft User - 05/28/2019 8:24 AM CDT* * * * * * * * ORIGINAL REPORT * * * * * * * *EXAM: Pelvis AP viewHISTORY: Right-sided hip painTECHNIQUE:An AP view of the pelvis is obtained.FINDINGS:No acute fracture or dislocation is identified. Degenerativechanges are seen in both hip joints. Enthesophyte formation is seen at theinsertion site of the adductor muscles. Changes of spondylosis and facetdegenerative disease are seen in the lower lumbar spine.IMPRESSIONNo fracture
--- NOTE | 2023-03-20 12:35 | RAD REPORT ---
EXAM DESCRIPTION: CT - CTHCSPWOC - 03/20/2023 12:23 pm CLINICAL HISTORY: fall, head injury, on anticoagulant COMPARISON: Head C Spine Mpr Wo Con dated 06/25/2019 TECHNIQUE: Axial thin cut noncontrast CT images of the head were obtained. Axial thin cut noncontrast CT images of the cervical spine were obtained. Multiplanar reformatted images were generated and reviewed. All CT scans are performed using dose optimization technique as appropriate and may include automated exposure control or mA/KV adjustment according to patient size. FINDINGS: CT HEAD WITHOUT CONTRAST: No acute hemorrhage, hydrocephalus or extra-axial collection is identified.No areas of brain edema or midline shift. Stable pattern of confluent deep white matter hypodensities, nonspecific, could relate to chronic sma ll vessel ischemic changes. Focus of near CSF density in the left basal ganglia is stable, may reflec t sequelae of remote ischemia. Right middle meatal pattern opacification of the paranasal sinuses including complete opacification o f the right maxillary sinus, new since the prior exam.The calvarium is intact. CT CERVICAL SPINE WITHOUT CONTRAST: No fracture or subluxation.Pronounced ossification along the anterior longitudinal ligament, stable. Mild opacification along the posterior longitudinal ligament across all cervical segments, also stabl e. Endplate remodeling and uncovertebral joint spurring contributes to degrees of neural foraminal na rrowing, most pronounced at C5-6 bilaterally worse on the right. Findings are stable.No prevertebral soft tissues swelling is identified. IMPRESSION: No acute traumatic intracranial or cervical spine findings. Stable chronic findings, as above.
--- NOTE | 2023-03-20 14:01 | EDPHYS ---
Physician Documentation [facility] Name: Lui Kelly Age: 87 yrs Sex: Male : 1935 Arrival Date: 03/20/2023 Time: 11:44 Bed 13 Private MD: ED Physician Reynold Rico HPI: 03/20 13:57 This 87 yrs old Male presents to ER via EMS with complaints of Fall Injury. rn 13:57 Details of fall: The patient fell from a supine position, out of bed. Onset: The rn symptoms/episode began/occurred today. Associated injuries: The patient sustained injury to the head. Severity of symptoms: At their worst the symptoms were mild, in the emergency department the symptoms have improved. The patient has not experienced similar symptoms in the past. Pt fell out of bed this AM, hit head, on blood thinners, denies pain. Denies other injury or pain. No back/hip/extremity injury or pain. . Historical: - Allergies: 12:08 No Known Allergies; ld1 - PMHx: 12:08 Hypertension; psoriasis; High Cholesterol; Diabetes - NIDDM; Depression; Dementia; CVA; ld1 Arthritis; - PSHx: 12:08 None; ld1 - Immunization history:: Adult Immunizations up to date, Client reports receiving the 2nd dose of the Covid vaccine. - Social history:: Smoking status: Patient denies any tobacco usage or history of. Patient/guardian denies using alcohol. - Family history:: not pertinent. - Hospitalizations: : No recent hospitalization is reported. ROS: 13:57 Constitutional: Negative for fever, chills, and weight loss, Eyes: Negative for injury, rn pain, redness, and discharge, Neck: Negative for injury, pain, and swelling, Cardiovascular: Negative for chest pain, palpitations, and edema, Respiratory: Negative for shortness of breath, cough, wheezing, and pleuritic chest pain, Abdomen/GI: Negative for abdominal pain, nausea, vomiting, diarrhea, and constipation, Back: Negative for injury and pain, MS/Extremity: Negative for injury and deformity, Skin: + abrasion to scalp Neuro: Negative for headache, weakness, numbness, tingling, and seizure. Exam: 13:57 Constitutional: This is a well developed, well nourished patient who is awake, alert, rn and in no acute distress. Head/Face: Normocephalic, small skin tear to top of scalp, no active bleeding, no laceration Eyes: Periorbital areas with no swelling, redness, or edema. Neck: NO midline tenderness Chest/axilla: Normal chest wall appearance and motion. Nontender with no deformity. No lesions are appreciated. Cardiovascular: Regular rate and rhythm. No pulse deficits. Respiratory: No increased work of breathing, no retractions or nasal flaring. Abdomen/GI: Soft, non-tender Back: No spinal tenderness. Skin: Warm, dry MS/ Extremity: Pulses equal, no cyanosis. Neurovascular intact. Full, normal range of motion. Equal circumference. Neuro: Awake and alert, GCS 15, oriented to person, place, and situation. Vital Signs: 12:07 BP 124 / 61; Pulse 77; Resp 18; Temp 98.1(TE); Pulse Ox 98% on R/A; Weight 85 kg; ld1 Height 5 ft. 11 in. ; Pain 0/10; 13:02 BP 132 / 62; Pulse 72; Resp 18; Pulse Ox 98% on R/A; ld1 13:42 BP 137 / 70; Pulse 75; Resp 18; Pulse Ox 99% on R/A; ld1 12:07 Body Mass Index 26.14 (85.00 kg, 180.34 cm) ld1 12:07 Pain Scale: Adult ld1 MDM: 11:57 Patient medically screened. rn 13:57 Differential diagnosis: abrasion, closed head injury, contusion, fracture. Data rn reviewed: vital signs, nurses notes, radiologic studies, CT scan, and as a result, I will discharge patient. Counseling: I had a detailed discussion with the patient and/or guardian regarding: the historical points, exam findings, and any diagnostic results supporting the discharge/admit diagnosis, radiology results, the need for outpatient follow up, to return to the emergency department if symptoms worsen or persist or if there are any questions or concerns that arise at home. Special discussion: Based on the patient's history, exam and DX evaluation, there is no indication for emergent intervention or inpatient TX. It is understood by the patient/guardian that if the SXs persist or worsen they need to return immediately for re-evaluation. I discussed with the patient/guardian in detail that at this point there is no indication for admission to the hospital. It is understood, however, that if the symptoms persist or worsen the patient needs to return immediately for re-evaluation. 03/20 12:10 Order name: CT Head C Spine; Complete Time: 12:52 rn Administered Medications: No medications were administered Disposition Summary: 03/20/23 14:01 Discharge Ordered Location: Home rn Problem: new rn Symptoms: have improved rn Condition: Stable rn Diagnosis - Unspecified injury of head, initial encounter rn Followup: rn - With: Private Physician - When: As needed - Reason: Recheck today's complaints, Re-evaluation by your physician Discharge Instructions: - Discharge Summary Sheet rn - Head Injury, Adult rn - Fall Prevention in the Home, Adult rn Forms: - Medication Reconciliation Form rn - Thank You Letter rn - Antibiotic rn social work - Prescription Opioid Use rn Signatures: Dispatcher [employer] Reynold Woody MD MD rn Sims, Lauren, RN RN ld1
--- NOTE | 2023-03-20 14:01 | ER ---
Nurse's Notes [facility] Name: Lui Kelly Age: 87 yrs Sex: Male : 1935 Arrival Date: 03/20/2023 Time: 11:44 Bed 13 Private MD: Diagnosis: Unspecified injury of head, initial encounter Presentation: 03/20 12:07 Chief complaint: Patient states: EMS toned out for fall - pt on blood thinners. Pt ld1 reports rolling out of bed and hitting his head on the ground. Denies pain at this time. Coronavirus screen: At this time, the client does not indicate any symptoms associated with coronavirus-19. Ebola Screen: No symptoms or risks identified at this time. Initial Sepsis Screen: Does the patient meet any 2 criteria? No. Patient's initial sepsis screen is negative. Does the patient have a suspected source of infection? No. Patient's initial sepsis screen is negative. Risk Assessment: Do you want to hurt yourself or someone else? Patient reports no desire to harm self or others. Onset of symptoms was March 20, 2023 at 12:08. 12:07 Method Of Arrival: EMS: [facility] ld1 12:07 Acuity: SOBEIDA 3 ld1 Triage Assessment: 12:08 General: Appears in no apparent distress. comfortable, Behavior is calm, cooperative, ld1 appropriate for age. Pain: Denies pain. EENT: No signs and/or symptoms were reported regarding the EENT system. Neuro: Level of Consciousness is awake, alert, obeys commands, Oriented to person, place, time, situation. Cardiovascular: Capillary refill < 3 seconds Patient's skin is warm and dry. Rhythm is sinus rhythm. Respiratory: Airway is patent Respiratory effort is even, unlabored. GI: Abdomen is flat, non-distended. : No signs and/or symptoms were reported regarding the genitourinary system. Derm: No signs and/or symptoms reported regarding the dermatologic system. Musculoskeletal: No signs and/or symptoms reported regarding the musculoskeletal system. Historical: - Allergies: 12:08 No Known Allergies; ld1 - PMHx: 12:08 Hypertension; psoriasis; High Cholesterol; Diabetes - NIDDM; Depression; Dementia; CVA; ld1 Arthritis; - PSHx: 12:08 None; ld1 - Immunization history:: Adult Immunizations up to date, Client reports receiving the 2nd dose of the Covid vaccine. - Social history:: Smoking status: Patient denies any tobacco usage or history of. Patient/guardian denies using alcohol. - Family history:: not pertinent. - Hospitalizations: : No recent hospitalization is reported. Screenin:10 [facility] ED Fall Risk Assessment (Adult) History of falling in the last 3 months, ld1 including since admission No falls in past 3 months (0 pts). Abuse screen: Denies threats or abuse. Denies injuries from another. Nutritional screening: No deficits noted. Tuberculosis screening: No symptoms or risk factors identified. Assessment: 12:10 Reassessment: See triage assessment. ld1 Vital Signs: 12:07 BP 124 / 61; Pulse 77; Resp 18; Temp 98.1(TE); Pulse Ox 98% on R/A; Weight 85 kg; ld1 Height 5 ft. 11 in. ; Pain 0/10; 13:02 BP 132 / 62; Pulse 72; Resp 18; Pulse Ox 98% on R/A; ld1 13:42 BP 137 / 70; Pulse 75; Resp 18; Pulse Ox 99% on R/A; ld1 12:07 Body Mass Index 26.14 (85.00 kg, 180.34 cm) ld1 12:07 Pain Scale: Adult ld1 ED Course: 11:57 Patient arrived in ED. iw 11:57 Reynold Rico MD is Attending Physician. rn 12:07 Safia Red, SLICK is Primary Nurse. ld1 12:08 Triage completed. ld1 12:08 Arm band placed on right wrist. ld1 12:10 Patient has correct armband on for positive identification. Placed in gown. Bed in low ld1 position. Call light in reach. Side rails up X2. school bus monitor on. Pulse ox on. NIBP on. Door closed. Noise minimized. Warm blanket given. 12:10 No provider procedures requiring assistance completed. ld1 12:24 CT Head C Spine In Process Unspecified. EDMS 14:13 IV discontinued, intact, bleeding controlled, No redness/swelling at site. ld1 Administered Medications: No medications were administered Medication: 12:10 VIS not applicable for this client. ld1 Outcome: 14:01 Discharge ordered by . rn 14:13 Discharged to home via wheelchair, with family. ld1 14:13 Condition: stable 14:13 Discharge instructions given to patient, family, Instructed on discharge instructions, follow up and referral plans. Demonstrated understanding of instructions, follow-up care. 14:13 Patient left the ED. ld1 Signatures: Dispatcher [employer] Abigail Jarvis, Reynold Bonilla RN, MD MD rn Sims, Lauren, RN RN ld1
[2023-03-20 14:18] VITALS: TEMP 98.1
[2023-03-20 14:21] VITALS: BP 137/70; O2SAT 99
== END 2023-03-20 14:13 | disposition home or self-care (01) ==
LOC: ER 11:44
DX: S00.01XA Abrasion of scalp, initial encounter (principal); F03.90 Unspecified dementia, unspecified severity, without behavioral disturbance, psychotic disturbance, mood disturbance, and anxiety; I10 Essential (primary) hypertension
CPT/HCPCS: 70450; 72125; 99284

== ENCOUNTER 2023-11-22 08:58 | Inpatient (IN) | payer OTHER ==
[2023-11-22 09:49] LABS: Absolute Lymphocytes (CBC) 1.9 K/uL (0.7-4.9); Hematocrit 33.2 % (39.6-49.0); Lymphocytes % 13.6 % (15.3-44.8); MCV 87.8 fL (80-100); MPV 7.6 fL (7.6-11.3); Platelets 409 thou/uL (152-406); RBC Red Blood Cell Count 3.79 M/uL (4.33-5.43)
--- NOTE | 2023-11-22 10:00 | RAD REPORT ---
EXAM DESCRIPTION: RAD - Chest Single View - 11/22/2023 9:53 am CLINICAL HISTORY: generalized weakness COMPARISON: Abdomen 1 View (KUB) dated 09/05/2019; Chest Pa And Lat (2 Views) dated 05/29/2019 FINDINGS: Lines: None. Lungs: No evidence of edema or pneumonia. Pleural: Slight blunting of the right costophrenic angle appears chronic. Cardiac: The heart size is within normal limits. Mediastinum: Within normal limits. Bones: No acute fractures. Other: None IMPRESSION: No acute cardiopulmonary disease.
[2023-11-22 10:18] LABS: Bilirubin Direct 0.2 mg/dL (0-0.2); Bilirubin Indirect, Calculated 0.3 mg/dL (0.2-0.8); Bilirubin Total 0.5 mg/dL (0.2-1.0); Potassium 4.1 mEq/L (3.5-5.1); Protein, Total 6.6 g/dL (6.4-8.2); Troponin High Sensitivity 10.2 pg/mL (<58.9)
[2023-11-22 11:39] LABS: Specific Gravity 1.023 (1.005-1.030); Urine Bacteria >50 /HPF (<20); Urine Bilirubin NEGATIVE (Negative); Urine Blood 2+ (Negative); Urine Clarity Extremely Turbid (Clear); Urine Color Yellow (Yellow); Urine Glucose 1+ (Negative); Urine Mucus 4+ /HPF (None Seen); Urine Protein 1+ (Negative); Urine RBC <5 /HPF (None Seen); Urine Urobilinogen Normal (Normal); Urine WBC Clump Few /HPF (None Seen)
--- NOTE | 2023-11-22 13:05 | ER ---
Nurse's Notes [facility] Name: Lui Kelly Age: 88 yrs Sex: Male : 1935 Arrival Date: 11/22/2023 Time: 08:58 Bed 17 Private MD: Diagnosis: UTI/ Urinary tract infection, site not specified;Muscle weakness (generalized) Presentation: 11/22 09:09 Chief complaint: Patient's son or daughter states: Generalized weakness increasing over ll1 the past two days. Daughter worried about UTI. No fever. Coronavirus screen: Client denies travel out of the [place] in the last 14 days. At this time, the client does not indicate any symptoms associated with coronavirus-19. Ebola Screen: Patient denies travel to an Ebola-affected area in the 21 days before illness onset. No acute neurological deficit is noted. Initial Sepsis Screen: Does the patient meet any 2 criteria? No. Patient's initial sepsis screen is negative. Does the patient have a suspected source of infection? No. Patient's initial sepsis screen is negative. Risk Assessment: Do you want to hurt yourself or someone else? Patient reports no desire to harm self or others. Onset of symptoms was November 21, 2023. 09:09 Method Of Arrival: Wheelchair ll1 09:09 Acuity: SOBEIDA 3 ll1 Triage Assessment: 09:05 The onset of the patients symptoms was November 19, 2023 at 13:00. General: Appears in rs5 no apparent distress. comfortable, Behavior is calm, cooperative. Stroke Activation: Symptom onset > 6 hours Physician: Stroke Attending; Name: ; Notified At: ; Arrived At: Physician: Chief Stroke Resident; Name: ; Notified At: ; Arrived At: Physician: Stroke Resident; Name: ; Notified At: ; Arrived At: Physician: ED Attending; Name: ; Notified At: ; Arrived At: Physician: ED Resident; Name: ; Notified At: ; Arrived At: Historical: - Allergies: :08 No Known Allergies; ll1 - PMHx: 09:08 Arthritis; CVA; Dementia; Depression; Diabetes - NIDDM; High Cholesterol; Hypertension; ll1 psoriasis; Hypercholesterolemia; - Immunization history:: Adult Immunizations up to date. - Social history:: Smoking status: Patient denies any tobacco usage or history of. Screenin:05 [facility] ED Fall Risk Assessment (Adult) History of falling in the last 3 months, rs5 including since admission No falls in past 3 months (0 pts) Confusion or Disorientation No (0 pts) Intoxicated or Sedated No (0 pts) Impaired Gait Yes (1 pt) Mobility Assist Device Used Yes (1 pt) Altered Elimination No (0 pt) Score/Fall Risk Level 0 - 2 = Low Risk Oriented to surroundings, Maintained a safe environment. Abuse screen: Denies threats or abuse. Nutritional screening: No deficits noted. Tuberculosis screening: No symptoms or risk factors identified. Assessment: 09:05 General: Appears in no apparent distress. comfortable, Behavior is calm, cooperative. rs5 09:05 Pain: Denies pain. Neuro: Level of Consciousness is awake, alert, obeys commands, rs5 Oriented to person, place, time, situation. Neuro: Reports weakness Denies blurred vision. Cardiovascular: Heart tones S1 S2 present Patient's skin is warm and dry. Rhythm is regular. Respiratory: Airway is patent Respiratory effort is even, unlabored, Respiratory pattern is regular, symmetrical, Breath sounds are clear bilaterally. GI: Abdomen is round non-distended, Bowel sounds present X 4 quads. Abd is soft and non tender X 4 quads. Patient currently denies nausea, vomiting. : No signs and/or symptoms were reported regarding the genitourinary system. EENT: No signs and/or symptoms were reported regarding the EENT system. Derm: Skin is pink, warm \\T\\ dry. Pt states "I have psoriasis and I have it all over my body. This is a chronic issue for me and I already have a dermotologist." Redness and and dry skin noted upper arms bilat, lower extremities bilat. Musculoskeletal: Range of motion: intact in all extremities, Reports weakness in generalized that began 2-3 days ago. 09:10 VAN Scoring: Arm Drift: Patients demonstrates NO arm weakness. Patient is VAN Negative. rs5 Visual Disturbance: No visual disturbance noted. Aphasia: No aphasia noted. Neglect: No neglect noted. Marly Swallow Protocol Brief Cognitive Screen What is your name? Normal, Where are you right now? Normal, What year is it? Normal. Oral Mechanism Examination Facial Symmetry: Normal, Motion: Normal, Lip Closure: Normal, Oral Mechanism Result: Normal. 3 oz Water Swallow Challenge: Pt able to drink all water without stopping, coughing, choking or throat clearing: Yes Result: PASS. 10:20 Reassessment: Patient and/or family updated on plan of care and expected duration. Pain rs5 level reassessed. Patient is alert, oriented x 3, equal unlabored respirations, skin warm/dry/pink. provider at bedside. Vital Signs: 09:05 BP 114 / 90; Pulse 86; Resp 17; Temp 97.5(O); Pulse Ox 99% ; rs5 09:09 Resp 18; Temp 97.4; Pain 0/10; ll1 09:30 BP 112 / 62; Pulse 76; Resp 18; Pulse Ox 99% on R/A; rs5 10:30 BP 112 / 53; Pulse 87; Resp 21; Pulse Ox 100% on R/A; me1 11:30 BP 120 / 55; Pulse 88; Resp 19; Pulse Ox 100% on R/A; me1 12:30 BP 108 / 87; Pulse 86; Resp 16; Pulse Ox 100% on R/A; me1 13:30 BP 132 / 53; Pulse 88; Resp 18; Pulse Ox 100% on R/A; me1 14:30 BP 125 / 53; Pulse 91; Resp 19; Pulse Ox 100% ; me1 09:09 Pain Scale: Adult ll1 NIH Stroke Scale Scores: 09:05 NIHSS Score: 0 rs5 ED Course: 09:01 Patient arrived in ED. rg4 09:03 Tylor Red DO is Attending Physician. ms3 09:05 Patient has correct armband on for positive identification. Placed in gown. Bed in low rs5 position. Call light in reach. Side rails up X2. Adult w/ patient. 09:07 Arm band placed on Patient placed in an exam room, on a stretcher. ll1 09:10 Inserted saline lock: 24 gauge in left forearm, using aseptic technique. Blood rs5 collected. 09:11 Triage completed. ll1 09:18 Isacc Delgadillo RN is Primary Nurse. rs5 09:27 XRAY Chest (1 view) In Process Unspecified. EDMS 10:33 No provider procedures requiring assistance completed. rs5 13:04 Sunil Rico MD is Hospitalizing Provider. ms3 14:28 Provided Education on: POC. Verbalized understanding. . me1 14:28 Patient admitted, IV remains in place. me1 Administered Medications: 13:22 Drug: Rocephin IV 1 grams IV at bolus once; Given slow IV push per pharmacy me1 instructions Route: IV; Rate: bolus; Site: left forearm; 13:24 Follow up: Response: No adverse reaction; IV Status: Completed infusion me1 Medication: 10:35 VIS not applicable for this client. rs5 Outcome: 13:05 Decision to Hospitalize by Provider. ms3 14:27 Admitted to Tele accompanied by tech, via stretcher, room 402, with chart, Report me1 called to SLICK Rod 14:27 Condition: stable 14:27 Instructed on the need for admit, 14:57 Patient left the ED. noa NIH Stroke Scale - NIH Stroke Score Date: 11/22/2023 Time: 09:05 Total Score = 0 10. Dysarthria (speech clarity - read or repeat words) - 0(Normal) 11. Extinction and Inattention (visual/tactile/auditory/spatial/personal) - 0(No abnormality) 1a. Level of Consciousness (LOC) - 0(Alert) 1b. Level of Consciousness (LOC) (Month \\T\\ Age) - 0(Both) 1c. LOC Commands (Open \\T\\ Closes Eyes/Level Vial Inspector And Tester) - 0(Both) 2. Best Gaze (Lateral Gaze Paresis) - 0(Normal) 3. Visual Field Loss - 0(No visual loss) 4. Facial Palsy - 0(Normal) 5a. Left Arm: Motor (10-second hold) - 0(No drift) 5b. Right Arm: Motor (10-second hold) - 0(No drift) 6a. Left Leg: Motor (5-second hold - always test supine) - 0(No drift) 6b. Right Leg: Motor (5-second hold - always test supine) - 0(No drift) 7. Limb Ataxia (finger/nose \\T\\ heel/fernandez - test with eyes open) - 0(Absent) 8. Sensory Loss (pinprick arms/legs/face) - 0(Normal) 9. Best Language: Aphasia (description/naming/reading) - 0(No aphasia) Initials: rs5 Signatures: Dispatcher [employer] EDMS Bethanie Avila 4 Jacky Silva RN RN ll1 Tylor Red DO DO ms3 Sharla Morales RN RN mb9 Isacc Delgadillo, RN RN rs5 Racquel Martin, RN RN me1
--- NOTE | 2023-11-22 13:05 | EDPHYS ---
Physician Documentation [facility] Name: Lui Kelly Age: 88 yrs Sex: Male : 1935 Arrival Date: 11/22/2023 Time: 08:58 Bed 17 Private MD: ED Physician Tylor Red HPI: 11/22 09:33 This 88 yrs old Male presents to ER via Wheelchair with complaints of Weakness. ms3 09:33 88-year-old male with past medical history of arthritis, CVA, dementia, depression, ms3 diabetes, hyperlipidemia, hypertension presents to the emergency department for generalized weakness. Patient's daughter notes nursing facility stated to her patient has declined over the last 2 days. Patient's daughter is concerned patient may have UTI. Patient is without pain.. Historical: - Allergies: 09:08 No Known Allergies; ll1 - PMHx: 09:08 Arthritis; CVA; Dementia; Depression; Diabetes - NIDDM; High Cholesterol; Hypertension; ll1 psoriasis; Hypercholesterolemia; - Immunization history:: Adult Immunizations up to date. - Social history:: Smoking status: Patient denies any tobacco usage or history of. ROS: 09:33 Neck: Negative for injury, pain, and swelling, Cardiovascular: Negative for chest pain, ms3 and palpitations. Respiratory: Negative for shortness of breath, cough, wheezing, and pleuritic chest pain, Abdomen/GI: Negative for abdominal pain, nausea, vomiting, diarrhea, and constipation, MS/Extremity: Negative for injury and deformity, Skin: Negative for injury, rash, and discoloration, 09:33 Constitutional: Positive for generalized weakness, 09:33 All other systems are negative, Exam: 09:33 Constitutional: This is a well developed, well nourished patient who is awake, alert, ms3 and in no acute distress. Head/Face: Normocephalic, atraumatic. Neck: Trachea midline, no cervical lymphadenopathy. Supple, full range of motion without nuchal rigidity, or vertebral point tenderness. No Meningismus. Chest/axilla: Normal chest wall appearance and motion. Nontender with no deformity. Cardiovascular: Regular rate and rhythm with a normal S1 and S2. No gallops, murmurs, or rubs. Normal PMI, no JVD. No pulse deficits. Respiratory: Lungs have equal breath sounds bilaterally, clear to auscultation and percussion. No rales, rhonchi or wheezes noted. No increased work of breathing, no retractions or nasal flaring. Abdomen/GI: Soft, non-tender, with normal bowel sounds. No distension or tympany. No guarding or rebound. No evidence of tenderness throughout. Skin: Warm, dry with normal turgor. Normal color with no rashes, no lesions, and no evidence of cellulitis. 09:33 Musculoskeletal/extremity: Sensation intact. upper and lower extremity weakness noted. 09:33 Skin: psoriasis. 10:33 ECG was reviewed by the Attending Physician. ms3 Vital Signs: 09:05 BP 114 / 90; Pulse 86; Resp 17; Temp 97.5(O); Pulse Ox 99% ; rs5 09:09 Resp 18; Temp 97.4; Pain 0/10; ll1 09:30 BP 112 / 62; Pulse 76; Resp 18; Pulse Ox 99% on R/A; rs5 10:30 BP 112 / 53; Pulse 87; Resp 21; Pulse Ox 100% on R/A; me1 11:30 BP 120 / 55; Pulse 88; Resp 19; Pulse Ox 100% on R/A; me1 12:30 BP 108 / 87; Pulse 86; Resp 16; Pulse Ox 100% on R/A; me1 13:30 BP 132 / 53; Pulse 88; Resp 18; Pulse Ox 100% on R/A; me1 14:30 BP 125 / 53; Pulse 91; Resp 19; Pulse Ox 100% ; me1 09:09 Pain Scale: Adult ll1 NIH Stroke Scale Scores: 09:05 NIHSS Score: 0 rs5 MDM: 09:16 Patient medically screened. ms3 09:33 ED course: DDx includes UTI vs Electrolyte abnormality vs anemia. ms3 17:01 Data reviewed: vital signs, nurses notes, lab test result(s), radiologic studies, plain ms3 films, and as a result, I will admit patient. Consideration of Admission/Observation Patient was admitted/placed on observation. Management of patient was discussed with the following: Hospitalist: Dr Rico. I considered the following discharge prescriptions or medication management in the emergency department Medications were administered in the Emergency Department. See MAR. Historians other than the Patient: Daughter/Son: Daughter. Care significantly affected by the following chronic conditions: Diabetes, Hypertension, Dementia. Counseling: I had a detailed discussion with the patient and/or guardian regarding the historical points, exam findings, and any diagnostic results supporting the discharge/admit diagnosis, lab results, radiology results, the need for further work-up and treatment in the hospital. 11/22 09:19 Order name: Basic Metabolic Panel; Complete Time: 10:53 ms3 11/22 09:19 Order name: CBC with Diff; Complete Time: 09:59 ms3 11/22 09:19 Order name: LFT's; Complete Time: 10:53 ms3 11/22 09:19 Order name: Troponin HS; Complete Time: 10:53 ms3 11/22 09:19 Order name: Urinalysis w/ reflexes; Complete Time: 12:49 ms3 11/22 11:43 Order name: Urine Culture EDMS 11/22 09:19 Order name: XRAY Chest (1 view); Complete Time: 10:11 ms3 11/22 09:19 Order name: EKG; Complete Time: 09:20 ms3 11/22 09:19 Order name: Cardiac monitoring; Complete Time: 10:18 ms3 11/22 09:19 Order name: EKG - Nurse/Tech; Complete Time: 10:18 ms3 11/22 09:19 Order name: IV Saline Lock; Complete Time: 10:18 ms3 11/22 09:19 Order name: Labs collected and sent; Complete Time: 10:18 ms3 11/22 09:19 Order name: O2 Per Protocol; Complete Time: 10:18 ms3 11/22 09:19 Order name: O2 Sat Monitoring; Complete Time: 10:18 ms3 EC:33 Rate is 86 beats/min. Rhythm is regular. QRS Douc[place] is Normal. [place] interval is normal. QRS ms3 interval is normal. Clinical impression: NSR w/ Non-specific ST/T Changes. Interpreted by me. Reviewed by me. Administered Medications: 13:22 Drug: Rocephin IV 1 grams IV at bolus once; Given slow IV push per pharmacy me1 instructions Route: IV; Rate: bolus; Site: left forearm; 13:24 Follow up: Response: No adverse reaction; IV Status: Completed infusion me1 Disposition Summary: 11/22/23 13:05 Hospitalization Ordered Notes: Hospitalization Status: Inpatient Admission ms3 Provider: Sunil Rico ms3 Location: Telemetry/MedSurg (Inpatient) ms3 Condition: Stable ms3 Problem: new ms3 Symptoms: are unchanged ms3 Bed/Room Type: Standard ms3 Room Assignment: 417(11/22/23 13:44) as6 Diagnosis - UTI/ Urinary tract infection, site not specified ms3 - Muscle weakness (generalized) ms3 Forms: - Medication Reconciliation Form ms3 - SBAR form ms3 - Leadership Thank You Letter ms3 NIH Stroke Scale - NIH Stroke Score Date: 11/22/2023 Time: 09:05 Total Score = 0 10. Dysarthria (speech clarity - read or repeat words) - 0(Normal) 11. Extinction and Inattention (visual/tactile/auditory/spatial/personal) - 0(No abnormality) 1a. Level of Consciousness (LOC) - 0(Alert) 1b. Level of Consciousness (LOC) (Month \T\ Age) - 0(Both) 1c. LOC Commands (Open \T\ Closes Eyes/Records Management Director) - 0(Both) 2. Best Gaze (Lateral Gaze Paresis) - 0(Normal) 3. Visual Field Loss - 0(No visual loss) 4. Facial Palsy - 0(Normal) 5a. Left Arm: Motor (10-second hold) - 0(No drift) 5b. Right Arm: Motor (10-second hold) - 0(No drift) 6a. Left Leg: Motor (5-second hold - always test supine) - 0(No drift) 6b. Right Leg: Motor (5-second hold - always test supine) - 0(No drift) 7. Limb Ataxia (finger/nose \T\ heel/fernandez - test with eyes open) - 0(Absent) 8. Sensory Loss (pinprick arms/legs/face) - 0(Normal) 9. Best Language: Aphasia (description/naming/reading) - 0(No aphasia) Initials: rs5 Signatures: Dispatcher [employer] Jacky Navarro RN RN ll1 Tylor Red DO DO ms3 Ezequiel Lopez RN RN as6 Racquel Martin RN RN me1 Corrections: (The following items were deleted from the chart) 13:44 13:05 ms3 as6
[2023-11-22] MEDS ORDERED: CEFTRIAXONE 1000 MG/VIAL ONE (13:19)
--- NOTE | 2023-11-22 13:52 | P.HP ---
Certification for Inpatient Patient admitted to: Inpatient With expected LOS: >2 Midnights Patient will require the following post-hospital care: None Practitioner: I am a practitioner with admitting privileges, knowledge of patient current condition, hospital course, and medical plan of care. Services: Services provided to patient in accordance with Admission requirements found in Title 42 Section 412.3 of the Code of Federal Regulations Patient History Date of Service: 11/22/23 Reason for admission: UTI, weakness History of Present Illness: 88-year-old male with history of dementia, previous TIA/CVA, diabetes mellitus type [id number]-[id number], hypertension, hyperlipidemia, psoriasis who lives at [facility] presents to the emergency department with chief complaint of increasing confusion, weakness, family concern for possible UTI. Family reports they were getting up to go to the load tester for his severe psoriasis when he was unable to stand with assistance as he usually could, staff at [facility] reports the past 2 to 3 days he has become progressively weak, seems to be a bit more confused than normal. He can usually stand with a walker and a wheelchair with a little bit of assistance but he has been a two- person assist in the past few days. Patient was evaluated in the emergency department his labs are significant for white blood cell count 14.2 hemoglobin 10.9 hematocrit 33.2, glucose 165, urinalysis concerning for UTI. Started on rocephin, will be admitted for further mgmt - Past Medical/Surgical History -: DM -: HTN -: HLD -: History of TIA/CVA -: Dementia -: Psoriasis Past Surgical History: Unable to obtain Psychosocial/ Personal History: Lives at [facility] - Family History Family History: Reviewed- Non-Contributory - Social History Smoking Status: Never smoker Alcohol use: No CD- Drugs: No Caffeine use: Yes Place of Residence: Home Review of Systems 10-point ROS is otherwise unremarkable General: Weakness Physical Examination - Physical Exam General: Alert, In no apparent distress, Oriented x2 HEENT: Atraumatic, PERRLA, Mucous membr. moist/pink Neck: Supple, 2+ carotid pulse no bruit, No LAD Respiratory: Clear to auscultation bilaterally, Normal air movement Cardiovascular: Regular rate/rhythm, Normal S1 S2 Gastrointestinal: Normal bowel sounds, No tenderness Musculoskeletal: No tenderness Integumentary: Rash(es) (Large areas of plaquing skin lesions/scaly with erythematous bases) Neurological: Normal speech, Normal affect - Studies Laboratory Data (last 24 hrs) 11/22/23 11/22/23 09:40 09:40 WBC 14.20 H Hgb 10.9 L Hct 33.2 L Plt Count 409 H Sodium 138 Potassium 4.1 BUN 21 H Creatinine 1.04 Glucose 165 H Total Bilirubin 0.5 AST 42 H ALT 18 Alkaline Phosphatase 52 Assessment and Plan - Plan Assessment: Metabolic encephalopathy secondary to UTI History of CVA/TIA Dementia Diabetes mellitus type [id number]-ikuzybvco Hypertension Hyperlipidemia Psoriasis Plan: Metabolic encephalopathy secondary to UTI Trend leukocytosis, urine culture obtained Continue empiric antibioticsRocephin Patient with increasing weakness the past 2 to 3 days, PT evaluation manager support services consult History of CVA/TIA Continue Plavix, Eliquis Dementia Memantine continued Diabetes mellitus type [id number]-[id number] ACHS Accu-Chek, sliding scale insulin Hypertension Hyperlipidemia Home medications have been continued Psoriasis Outpatient management DVT PPX:Eliquis Code status:Full Discharge Plan: Home Plan to discharge in: 72 Hours - Advance Directives Does patient have a Living Will: No Does patient have a Durable POA for Healthcare: No - Code Status/Comfort Care Code Status Assessed: Yes (Full code) Critical Care: No Time Spent Managing Pts Care (In Minutes): 70
[2023-11-22] MEDS ORDERED: ONDANSETRON 4 MG/2 ML VIAL IV PRN (15:49)
[2023-11-22 15:58] VITALS: BMI 25.4
[2023-11-22] MEDS: INSULIN REGULAR (HUMAN) 100 UNIT/ML SQ SCH (16:30)
[2023-11-22] MEDS: carvediloL 12.5 MG TAB PO SCH (17:05)
[2023-11-22] MEDS: FENOFIBRATE 160 MG TAB PO SCH (17:05)
[2023-11-22] MEDS: APIXABAN 5 MG TABLET PO SCH (20:32)
[2023-11-22] MEDS: MEMANTINE HCL 10 MG TABLET PO SCH (20:32)
[2023-11-22] MEDS: TAMSULOSIN 0.4 MG SR CAP PO SCH (20:32)
[2023-11-22] MEDS ORDERED: PNEUMOCOCCAL VACCINE 0.5 ML IMVAC ONE (22:00)
[2023-11-22] MEDS ORDERED: INFLUENZA VACCINE (for 6+ mo) 0.5 ML DOSE IMVAC ONE (22:00)
[2023-11-23 03:51] LABS: Hematocrit 29.1 % (39.6-49.0); Lymphocytes % 17.5 % (15.3-44.8); MPV 7.7 fL (7.6-11.3); Platelets 378 thou/uL (152-406); RBC Red Blood Cell Count 3.35 M/uL (4.33-5.43)
[2023-11-23 04:12] LABS: Magnesium 1.9 mg/dL (1.6-2.4); Potassium 3.9 mEq/L (3.5-5.1)
[2023-11-23] MEDS: POTASSIUM CL SA 10 MEQ TAB PO ONE (04:54)
[2023-11-23] MEDS: ramipriL 5 MG CAP PO SCH (08:24)
[2023-11-23] MEDS: CLOPIDOGREL 75 MG TABLET PO SCH (08:25)
[2023-11-23] MEDS: hydroCHLOROthiazide 25 MG TAB PO SCH (08:27)
[2023-11-23] MEDS: AMLODIPINE 5 MG TAB PO SCH (08:28)
[2023-11-23] MEDS: CEFTRIAXONE 1,000 MG in NA CHLORIDE 0.9% 50 ML IVPB SCH (08:28)
[2023-11-23] MEDS: LORATADINE 10 MG TAB PO PRN (11:32)
--- NOTE | 2023-11-23 13:14 | P.PN ---
Date of Service: 11/23/23 Subjective: Still with confusion No fevers or acute events overnight ROS: 10 point ROS as noted above, otherwise negative Physical exam GEN: Alert, oriented x 1: Generally confused HEENT: Normal conjunctiva, sclera anicteric CV: Regular rate and rhythm, no edema Pulm: Nonlabored respirations on room air ABD: Soft, nontender, nondistended MSK: No joint tenderness Integumentary: Diffuse plaque/scaly rash noted to thorax, extremities Neuro: Normal speech, normal affect Vitals reviewed Assessment: Metabolic encephalopathy secondary to UTI History of CVA/TIA Dementia Diabetes mellitus type [id number]-eufhkzpyy Hypertension Hyperlipidemia Psoriasis Plan Metabolic encephalopathy secondary to UTI WBC improving Continue empiric antibioticsRocephin Patient with increasing weakness the past 2 to 3 days, PT evaluation tax services intern consult-anticipate SNF at [place] History of CVA/TIA Continue Plavix, Eliquis Dementia Memantine continued Diabetes mellitus type [id number]-[id number] ACHS Accu-Chek, sliding scale insulin Hypertension Hyperlipidemia Home medications have been continued Psoriasis Outpatient management DVT PPX:Eliquis Code status:Full Discharge Plan: Home Plan to discharge in: 72 Hours Time Spent Managing Pts Care (In Minutes): 35
[2023-11-23] MEDS: ACETAMINOPHEN 500 MG TAB PO PRN (20:32)
[2023-11-24 05:08] LABS: Absolute Lymphocytes (CBC) 2.5 K/uL (0.7-4.9); Hematocrit 31.2 % (39.6-49.0); Lymphocytes % 18.3 % (15.3-44.8); MCV 87.1 fL (80-100); MPV 7.6 fL (7.6-11.3); Platelets 382 thou/uL (152-406); RBC Red Blood Cell Count 3.58 M/uL (4.33-5.43)
[2023-11-24 05:48] LABS: Potassium 4.3 mEq/L (3.5-5.1)
[2023-11-24] MEDS: NA CHLORIDE 0.9% 1,000 ML ONE ×2 (07:54→07:58)
[2023-11-24 08:19] LABS: SARS-COV-2 RT PCR NEGATIVE (NEGATIVE)
[2023-11-24] MEDS: OLOPATADINE OPTH SCH (09:00)
[2023-11-24] MEDS: PRAMOXINE TOP SCH (09:00)
[2023-11-24] MEDS: HYDROCORTISONE TOP SCH (09:00)
[2023-11-24] MEDS: TRIAMCINOLONE 0.1% CREAM 15GM TOP PRN (09:22)
[2023-11-24] MEDS: Meropenem 1,000 MG in NA CHLORIDE 0.9% 100 ML IV SCH (09:23)
--- NOTE | 2023-11-24 09:56 | RAD REPORT ---
EXAM DESCRIPTION: CT - Stone Protocol - 11/24/2023 9:02 am CLINICAL HISTORY: Flank pain. UTI, fevers R/O stone/hydro COMPARISON: CT ABD PELVIS W WO CONTRAST dated 07/29/2014 TECHNIQUE: Axial images were obtained without oral or IV contrast. Lack of contrast limits solid org an and vascular assessment. The [id number] spans the entirety of the system partially obscuring uppermost abdomen and lung bases. Coronal reformatted images were obtained and reviewed. All CT scans are performed using dose optimization technique as appropriate and may include automated exposure control or mA/KV adjustment according to patient size. FINDINGS: Fibrotic lung bases. Imaged portions of the liver and spleen show no suspicious findings on non-contrast imaging. The panc reas appears unremarkable. Mild nodular thickening of both adrenal glands. No pathologic lymphadenopa thy in the abdomen or pelvis. 6 mm stone is present inferior calyx right kidney. No additional tract stone seen. No significant hydronephrosis. No bowel obstruction, free air, free fluid or abscess. Normal appendix noted.Moderate stool is presen t throughout the colon. Moderate lumbar degenerative changes. IMPRESSION: 6 mm stone inferior calyx right kidney without hydronephrosis. Moderate stool is retained throughout the colon.
--- NOTE | 2023-11-24 11:22 | P.PN ---
Date of Service: 11/24/23 Subjective: Fever overnight no other acute events ROS: 10 point ROS as noted above, otherwise negative Physical exam GEN: Alert, oriented x 1: Generally confused HEENT: Normal conjunctiva, sclera anicteric CV: Regular rate and rhythm, no edema Pulm: Nonlabored respirations on room air ABD: Soft, nontender, nondistended MSK: No joint tenderness Integumentary: Diffuse plaque/scaly rash noted to thorax, extremities Neuro: Normal speech, normal affect Vitals reviewed Assessment: Sepsis secondary to E. Coli ESBL UTI Metabolic encephalopathy secondary to UTI History of CVA/TIA Dementia Diabetes mellitus type [id number]-gtieozn-kknqsoxmt Hypertension Hyperlipidemia Psoriasis Plan Sepsis secondary to E. Coli ESBL UTI Metabolic encephalopathy secondary to UTI Merrem started 2/3 Blood cultures and lactate ordered Patient with increasing weakness the past 2 to 3 days, PT evaluation environmental services coordinator consult-anticipate SNF at [place] History of CVA/TIA Continue Plavix, Eliquis Dementia Memantine continued Diabetes mellitus type 0xwv-uzuclvo-ostwibrqq ACHS Accu-Chek, sliding scale insulin Hypertension Hyperlipidemia Home medications have been continued Psoriasis Outpatient management DVT PPX:Eliquis Code status:Full Discharge Plan: Home Plan to discharge in: 72 Hours Time Spent Managing Pts Care (In Minutes): 35
[2023-11-25 07:14] LABS: Potassium 3.9 mEq/L (3.5-5.1)
[2023-11-25 07:16] LABS: Lymphocytes % 16.4 % (15.3-44.8); MCV 87.1 fL (80-100); MPV 7.6 fL (7.6-11.3); Platelets 358 thou/uL (152-406); RBC Red Blood Cell Count 3.33 M/uL (4.33-5.43)
--- NOTE | 2023-11-25 08:47 | P.PN ---
Date of Service: 11/25/23 Subjective: low grade fevers again overnight ROS: 10 point ROS as noted above, otherwise negative Physical exam GEN: Alert, oriented x 1: Generally confused HEENT: Normal conjunctiva, sclera anicteric CV: Regular rate and rhythm, no edema Pulm: Nonlabored respirations on room air ABD: Soft, nontender, nondistended MSK: No joint tenderness Integumentary: Diffuse plaque/scaly rash noted to thorax, extremities Neuro: Normal speech, normal affect Vitals reviewed Assessment: Sepsis secondary to E. Coli ESBL UTI Metabolic encephalopathy secondary to UTI History of CVA/TIA Dementia Diabetes mellitus type [id number] Hypertension Hyperlipidemia Psoriasis Plan Sepsis secondary to E. Coli ESBL UTI Metabolic encephalopathy secondary to UTI Merrem started 2/3 Blood cultures pending lactate <2 no hypotension or organ dysfunction Patient with increasing weakness the past 2 to 3 days, PT evaluation business services vice president consult-anticipate SNF at [place] PICC ordered History of CVA/TIA Continue Plavix, Eliquis Dementia Memantine continued Diabetes mellitus type [id number] ACHS Accu-Chek, sliding scale insulin Hypertension Hyperlipidemia Home medications have been continued Psoriasis Outpatient management DVT PPX:Eliquis Code status:Full Discharge Plan: Home Plan to discharge in: 72 Hours Time Spent Managing Pts Care (In Minutes): 35
[2023-11-25] MEDS: Mupirocin NASAL 2 APPL/1 GM TUBE NAS SCH (09:29)
[2023-11-25] MEDS: POTASSIUM CL SA 10 MEQ TAB PO ONE (14:50)
--- NOTE | 2023-11-25 17:10 | RAD REPORT ---
EXAM DESCRIPTION: RAD - Chest Single View - 11/25/2023 4:34 pm CLINICAL HISTORY: Device placement PICC line placement IMPRESSION: PICC line with its tip in the mid distal superior vena cava
[2023-11-26 07:27] LABS: Hematocrit 28.6 % (39.6-49.0); MCV 87.4 fL (80-100); MPV 7.4 fL (7.6-11.3); Platelets 405 thou/uL (152-406); RBC Red Blood Cell Count 3.28 M/uL (4.33-5.43)
[2023-11-26 07:29] LABS: Potassium 4.4 mEq/L (3.5-5.1)
--- NOTE | 2023-11-26 09:07 | P.PN ---
Date of Service: 11/26/23 Subjective: No fevers overnight pleasantly confused no acute events overnight ROS: 10 point ROS as noted above, otherwise negative Physical exam GEN: Alert, oriented x 1: Generally confused HEENT: Normal conjunctiva, sclera anicteric CV: Regular rate and rhythm, no edema Pulm: Nonlabored respirations on room air ABD: Soft, nontender, nondistended MSK: No joint tenderness Integumentary: Diffuse plaque/scaly rash noted to thorax, extremities Neuro: Normal speech, normal affect Vitals reviewed Assessment: Sepsis secondary to E. Coli ESBL UTI Metabolic encephalopathy secondary to UTI History of CVA/TIA Dementia Diabetes mellitus type [id number] Hypertension Hyperlipidemia Psoriasis Plan Sepsis secondary to E. Coli ESBL UTI Metabolic encephalopathy secondary to UTI Merrem started 2/3 Blood cultures pending- NGTD/in 24 hours lactate <2 no hypotension or organ dysfunction Patient with increasing weakness the past 2 to 3 days, PT evaluation dental services director consult-anticipate SNF at [place] PICC in place awaiting ID recs History of CVA/TIA Continue Plavix, Eliquis Dementia Memantine continued Diabetes mellitus type [id number] ACHS Accu-Chek, sliding scale insulin Hypertension Hyperlipidemia Home medications have been continued Psoriasis Outpatient management DVT PPX:Eliquis Code status:Full Discharge Plan: Home Plan to discharge in: 24-48 hours Time Spent Managing Pts Care (In Minutes): 35
[2023-11-26 09:09] VITALS: O2SAT 97
--- NOTE | 2023-11-26 10:21 | P.CNS ---
Date of Consult: 11/26/23 Reason for Consult: E.coli ESBL Chief Complaint: UTI, weakness History of Present Illness: Patient is an 88-year-old male with a past medical history of dementia prior CVA, diabetes mellitus type 2, hypertension, psoriasis who presented to the ED due to increasing confusion and weakness. Patient was admitted for sepsis secondary to urinary tract infection. Urine cultures growing E. coli ESBL. Infectious disease was consulted. Allergies No Known Allergies Allergy (Unverified 11/22/23 15:49) Home medications list reviewed: Yes Home Medications: Acetaminophen 1 tab PO Q6H PRN 11/22/23 Amlodipine [Norvasc*] 1 tab PO DAILY 11/22/23 Apixaban [Eliquis] 1 tab PO BID 11/22/23 Carvedilol [Coreg] 1 tab PO BID 11/22/23 Clopidogrel Bisulfate [Plavix*] 1 tab PO DAILY 11/22/23 Fenofibrate 1 tab PO DAILY 11/22/23 L.acidoph,Paracasei, B.lactis [Probiotic] 1 cap PO DAILY 11/22/23 Lactulose 30 ml PO TID PRN 11/22/23 Loratadine [Claritin*] 1 tab PO DAILY 11/22/23 Memantine HCl 1 tab PO BID 11/22/23 Olopatadine [Patanol Opth*] 1 drop EACH EYE DAILY 11/22/23 Potassium Chloride 1 tab PO DAILY 11/22/23 Ramipril [Altace] 1 tab PO DAILY 11/22/23 Sennosides/Docusate Sodium [Senna Plus 8.6-50 mg Tablet] 2 tab PO BID PRN 11/22/23 Sitagliptin Phos/Metformin HCl [Janumet 50-1,000 mg Tablet] 1 tab PO DAILY 11/22/23 Tamsulosin [Flomax*] 1 tab PO BEDTIME 11/22/23 Triamcinolone 0.1% Crm [Kenalog 0.1% Cream*] 1 appl TOP BID PRN 11/22/23 glipiZIDE [Glipizide] 1 tab PO DAILY 11/22/23 hydroCHLOROthiazide [Hydrochlorothiazide] 1 tab PO DAILY 11/22/23 Hydrocortisone 30 gm TP BID 11/26/23 Meropenem-0.9% Sodium Chloride [Meropenem-0.9% NaCl 1 Gram/50] 1 gm IV Q8H 8 Days piggyback 11/26/23 - Past Medical/Surgical History Diabetic: Yes -: DM -: HTN -: HLD -: History of TIA/CVA -: Dementia -: Psoriasis Psychosocial/ Personal History: Lives at [facility] - Social History Alcohol use: No CD- Drugs: No Caffeine use: Yes Place of Residence: Home Review of Systems 10-point ROS is otherwise unremarkable Integumentary: Other (psoriasis generalized ) Physical Examination Temp Pulse Resp BP Pulse Ox 97.4 F 81 18 113/55 L 97 11/26/23 08:00 11/26/23 08:40 11/26/23 08:00 11/26/23 08:40 11/26/23 08:00 General: In no apparent distress, Oriented x1, Confused HEENT: Normocephalic Respiratory: Normal air movement, Diminished Cardiovascular: No edema, Regular rate/rhythm Gastrointestinal: Normal bowel sounds, Soft and benign Musculoskeletal: No tenderness Integumentary: Rash(es) (psoriasis plaques/scales generalized ) Laboratory Data - Reviewed Microbiology Data - Reviewed Imagings Data: - Reviewed Conclusions/Impression: Problem List Sepsis secondary to complicated Urinary Tract Infection Diabetes mellitus type I Dementia Hypertension Hyperlipidemia Psoriasis Sepsis secondary to complicated urinary tract infection - CT abdomen pelvis: "6 mm stone inferior calyx right kidney without hydronephrosis. Moderate stool is retained throughout the colon." -Urine culture 11/22: E. coli ESBL -Blood cultures 3: Pending -On meropenem started 2/3 Leukocytosis Afebrile 24 hours Influenza and COVID-negative Recommendations - complicated UTI, ESBL: Continue meropenem for 10 days given delayed response. -Monitor WBC and fever trends -Blood glucose control -Continue supportive care Case discussed with Dr. JimenezN
--- NOTE | 2023-11-26 13:37 | P.DS ---
Admission Date: 11/22/23 Discharge Date: 11/26/23 Disposition: TRANSFER TO [facility] Discharge Condition: GOOD Reason for Admission: UTI, weakness Consultations: ID- Dr. Jimenez Brief History of Present Illness: 88-year-old male with history of dementia, previous TIA/CVA, diabetes mellitus type [id number], hypertension, hyperlipidemia, psoriasis who lives at [facility] presents to the emergency department with chief complaint of increasing confusion, weakness, family concern for possible UTI. Family reports they were getting up to go to the rn [place] for his severe psoriasis when he was unable to stand with assistance as he usually could, staff at [facility] reports the past 2 to 3 days he has become progressively weak, seems to be a bit more confused than normal. He can usually stand with a walker and a wheelchair with a little bit of assistance but he has been a two- person assist in the past few days. Patient was evaluated in the emergency department his labs are significant for white blood cell count 14.2 hemoglobin 10.9 hematocrit 33.2, glucose 165, urinalysis concerning for UTI. Started on rocephin, will be admitted for further mgmt Hospital Course: Assessment: Sepsis secondary to E. Coli ESBL UTI Metabolic encephalopathy secondary to UTI History of CVA/TIA Dementia Diabetes mellitus type [id number] Hypertension Hyperlipidemia Psoriasis Patient was admitted to the hospital for generalized weakness, UTI. He was initially treated with empiric Rocephin but white blood cell count increased and patient was febrile. Urine culture obtained and showed E. coli ESBL patient was started on meropenem with initial start date of 11/24/2023. ID evaluated patient and recommends total of 10 days of IV meropenem. PICC line was placed and patient was accepted to [facility] for further antibiotics, physical therapy. End date for meropenem is 12/03/2023. Continue home medications as prescribed New medication-meropenem 1 g IV every 8 hours-end date 12/03/2003 Recommend further outpatient evaluation from dermatology for psoriasis Vital Signs/Physical Exam: Temp Pulse Resp BP Pulse Ox 97.4 F 81 18 113/55 L 97 11/26/23 08:00 11/26/23 08:40 11/26/23 08:00 11/26/23 08:40 11/26/23 08:00 General: Alert, In no apparent distress, Oriented x2 HEENT: Atraumatic, PERRLA Neck: Supple, JVD not distended Respiratory: Clear to auscultation bilaterally, Normal air movement Cardiovascular: Regular rate/rhythm, Normal S1 S2 Gastrointestinal: Normal bowel sounds, No tenderness Musculoskeletal: No tenderness Integumentary: No rashes, Rash(es), Other (significant psoriasis to limbs/thorax) Neurological: Normal speech, Normal affect Laboratory Data at Discharge: WBC 13.00 thou/uL (4.3-10.9) H 11/26/23 06:48 Hgb 9.6 g/dL (13.6-17.9) L 11/26/23 06:48 Hct 28.6 % (39.6-49.0) L 11/26/23 06:48 Plt Count 405 thou/uL (152-406) 11/26/23 06:48 Sodium 135 mEq/L (136-145) L 11/26/23 06:48 Potassium 4.4 mEq/L (3.5-5.1) 11/26/23 06:48 BUN 30 mg/dL (7-18) H 11/26/23 06:48 Creatinine 1.01 mg/dL (0.70-1.30) 11/26/23 06:48 Glucose 133 mg/dL (74-106) H 11/26/23 06:48 Magnesium 2.0 mg/dL (1.6-2.4) 11/25/23 06:35 Total Bilirubin 0.5 mg/dL (0.2-1.0) 11/22/23 09:40 AST 42 U/L (15-37) H 11/22/23 09:40 ALT 18 U/L (16-61) 11/22/23 09:40 Alkaline Phosphatase 52 U/L (45-117) 11/22/23 09:40 Home Medications: Acetaminophen 1 tab PO Q6H PRN 11/22/23 Amlodipine [Norvasc*] 1 tab PO DAILY 11/22/23 Apixaban [Eliquis] 1 tab PO BID 11/22/23 Carvedilol [Coreg] 1 tab PO BID 11/22/23 Clopidogrel Bisulfate [Plavix*] 1 tab PO DAILY 11/22/23 Fenofibrate 1 tab PO DAILY 11/22/23 L.acidoph,Paracasei, B.lactis [Probiotic] 1 cap PO DAILY 11/22/23 Lactulose 30 ml PO TID PRN 11/22/23 Loratadine [Claritin*] 1 tab PO DAILY 11/22/23 Memantine HCl 1 tab PO BID 11/22/23 Olopatadine [Patanol Opth*] 1 drop EACH EYE DAILY 11/22/23 Potassium Chloride 1 tab PO DAILY 11/22/23 Ramipril [Altace] 1 tab PO DAILY 11/22/23 Sennosides/Docusate Sodium [Senna Plus 8.6-50 mg Tablet] 2 tab PO BID PRN 11/22/23 Sitagliptin Phos/Metformin HCl [Janumet 50-1,000 mg Tablet] 1 tab PO DAILY 11/22/23 Tamsulosin [Flomax*] 1 tab PO BEDTIME 11/22/23 Triamcinolone 0.1% Crm [Kenalog 0.1% Cream*] 1 appl TOP BID PRN 11/22/23 glipiZIDE [Glipizide] 1 tab PO DAILY 11/22/23 hydroCHLOROthiazide [Hydrochlorothiazide] 1 tab PO DAILY 11/22/23 Hydrocortisone 30 gm TP BID 11/26/23 Meropenem-0.9% Sodium Chloride [Meropenem-0.9% NaCl 1 Gram/50] 1 gm IV Q8H 8 Days piggyback 11/26/23 New Medications: Meropenem-0.9% Sodium Chloride [Meropenem-0.9% NaCl 1 Gram/50] 1 gm IV Q8H 8 Days piggyback Physician Discharge Instructions: Patient was admitted to the hospital for generalized weakness, UTI. He was initially treated with empiric Rocephin but white blood cell count increased and patient was febrile. Urine culture obtained and showed E. coli ESBL patient was started on meropenem with initial start date of 11/24/2023. ID evaluated patient and recommends total of 10 days of IV meropenem. PICC line was placed and patient was accepted to [facility] for further antibiotics, physical therapy. End date for meropenem is 12/03/2023. Continue home medications as prescribed New medication-meropenem 1 g IV every 8 hours-end date 12/03/2003 Recommend further outpatient evaluation from dermatology for psoriasis Diet: Regular Activity: Fall precautions Followup: Kaleb Lugo MD [Primary Care Provider] - Time spent managing pt's care (in minutes): 30
[2023-11-26 14:19] VITALS: BP 115/54; TEMP 97.6
--- NOTE | 2023-11-26 15:14 | EKG ---
Test Date: 2023-11-22 Test Time: 10:13:15 Gambling Cashier: EMILY MEASUREMENT RESULTS: Intervals: Rate: 86 IN: 176 QRSD: 100 QT: 406 QTc: 485 [place]: P: 62 IN: 176 QRS: -8 T: 68 INTERPRETIVE STATEMENTS: Normal sinus rhythm Prolonged QT Abnormal ECG Compared to ECG 11/22/2023 10:12:28 No significant changes Electronically Signed On 11-26-23 15:03:41 TELEPRINTER INSTALLER by Rolo Padilla
--- NOTE | 2023-11-26 15:15 | EKG ---
Test Date: 2023-11-22 Test Time: 10:12:28 Carpet Floor Layer Apprentice: EMILY MEASUREMENT RESULTS: Intervals: Rate: 88 NH: 204 QRSD: 104 QT: 400 QTc: 484 [place]: P: 17 NH: 204 QRS: -9 T: 69 INTERPRETIVE STATEMENTS: Normal sinus rhythm Prolonged QT Abnormal ECG Compared to ECG 10/26/1997 10:34:00 Prolonged QT interval now present Electronically Signed On 11-26-23 15:03:43 REGIONAL BRANCH MANAGER by Rolo Padilla
[2023-11-26] MEDS ORDERED: Meropenem 1,000 MG in NA CHLORIDE 0.9% 100 ML IV SCH (17:00)
[2023-11-26] MEDS ORDERED: HYDROCORTISONE 2.5% CREAM TOP SCH (21:00)
[2023-11-27] MEDS ORDERED: OLOPATADINE 0.2% OPTH SCH (09:00)
[2023-11-27] MEDS ORDERED: OPTH OPTH SCH (09:00)
== END 2023-11-26 15:16 | DRG 871 ==
LOC: ER 08:58 → 4TH 13:34
PROVIDERS: ADMIT Hospitalist; ATTEND Internal Medicine
PROC: 02HV33Z Insertion of Infusion Device into Superior Vena Cava, Percutaneous Approach (ICD-10-PCS; principal; 2023-11-25)
DX: A41.51 Sepsis due to Escherichia coli [E. coli] (principal); G93.41 Metabolic encephalopathy; N39.0 Urinary tract infection, site not specified; Z16.12 Extended spectrum beta lactamase (ESBL) resistance; E11.9 Type 2 diabetes mellitus without complications; I10 Essential (primary) hypertension; L40.9 Psoriasis, unspecified; E78.00 Pure hypercholesterolemia, unspecified; F03.90 Unspecified dementia, unspecified severity, without behavioral disturbance, psychotic disturbance, mood disturbance, and anxiety; Z11.52 Encounter for screening for COVID-19; Z79.84 Long term (current) use of oral hypoglycemic drugs; Z86.73 Personal history of transient ischemic attack (TIA), and cerebral infarction without residual deficits; Z79.01 Long term (current) use of anticoagulants; Z79.02 Long term (current) use of antithrombotics/antiplatelets; Z79.899 Other long term (current) drug therapy
CPT/HCPCS: 0240U; 36415; 71045; 74176; 76377; 80048; 80076; 81001; 82947; 83605; 83735; 84484; 85025; 85027; 87040; 87077; 87086; 87088; 87186; 93005; 97110; 97161; 97530; J0696; J1815; J2185; J7030